=== PATIENT | female | born 1970 | race Caucasian/White ===

== ENCOUNTER 2016-07-21 15:08 | Emergency (ER) | payer MEDICAID, OTHER ==
[2016-07-21 15:32] VITALS: BP 126/87
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
== END 2016-07-21 16:17 | disposition home or self-care (01) ==
LOC: UCEAST 15:08 → MERGE 15:08 → UCEAST 16:17
DX: S90.862A Insect bite (nonvenomous), left foot, initial encounter (principal); L03.116 Cellulitis of left lower limb; W57.XXXA Bitten or stung by nonvenomous insect and other nonvenomous arthropods, initial encounter; Y93.9 Activity, unspecified; Y92.9 Unspecified place or not applicable; G43.909 Migraine, unspecified, not intractable, without status migrainosus; F41.8 Other specified anxiety disorders; Z88.5 Allergy status to narcotic agent
CPT/HCPCS: 99202; G0463

== ENCOUNTER 2016-09-23 09:57 | Emergency (ER) | payer OTHER ==
[2016-09-23 11:05] VITALS: BP 122/98
[2016-09-23] MEDS ORDERED: Acetaminophen TAB* 325 MG PO ONE (12:13)
[2016-09-23] MEDS ORDERED: Penicillin VK TAB* 250 MG PO ONE (12:17)
--- NOTE | 2016-09-23 12:26 | UC ---
Throat Pain/Nasal Drake HPI - HPI Summary HPI Summary: This is a 45 yo female with a 1d h/o ST, PHELPS and ear ache. Denies fever or sick contacts. Associated nausea, but no vomiting or diarrhea. No rash. No abd pain. No h/o similar symptoms. - History of Current Complaint Chief Complaint: UCGeneralIllness Stated Complaint: SORE THROAT Hx Last Menstrual Period: 09/04/16 - Allergies/Home Medications Allergies/Adverse Reactions: Allergies Allergy/AdvReac Type Severity Reaction Status Date / Time Codeine Allergy Nausea Verified 09/23/16 11:05 PMH/Surg Hx/FS Hx/Imm Hx Previously Healthy: No Neurological History: Seizures - Surgical History Surgical History: Yes Surgery Procedure, Year, and Place: ANKLE SURGERY- A TEENAGER. TUBAL LIGATION- 5 YEARS AGO- [facility] – [place]. D/C DR. SAGASTUME 10/19 - Family History Known Family History: Positive: None Negative: Cardiac Disease, Respiratory Disease - Social History Alcohol Use: None Substance Use Type: None Smoking Status (MU): Never Smoked Tobacco Review of Systems Constitutional: Fatigue Skin: Negative Eyes: Negative ENT: Sore Throat, Ear Ache Respiratory: Negative Cardiovascular: Negative Gastrointestinal: Negative Genitourinary: Negative Motor: Negative Neurovascular: Negative Musculoskeletal: Negative Neurological: Negative Psychological: Negative All Other Systems Reviewed And Are Negative: Yes Physical Exam Triage Information Reviewed: Yes Appearance: Ill-Appearing Vital Signs: Initial Vital Signs Temp 98.2 F 09/23/16 10:59 Pulse 100 09/23/16 10:59 Resp 18 09/23/16 10:59 BP 122/98 09/23/16 10:59 Pulse Ox 100 09/23/16 10:59 Vital Signs Reviewed: Yes ENT: Positive: Pharyngeal erythema, TM dull, Tonsillar swelling Neck: Positive: Supple, No Lymphadenopathy Respiratory: Positive: Lungs clear, Normal breath sounds. Negative: Crackles, Rhonchi, Wheezing Cardiovascular: Positive: RRR, No Murmur Abdomen Description: Positive: Nontender, Soft Skin Exam: Normal Skin: Negative: rashes Diagnostics - Laboratory Diagnostic Studies Completed/Ordered: rapid strep - positive Throat Pain/Nasal Course/Dx - Course Course Of Treatment: This is a 45 yo female with a sz d/o who presented with a 1 d [address] and PHELPS. Exam c/w strep pharyngitis, rapid strep positive. Pt reports she generally gets yeast infections along with abx use. Rx'd diflucan for prn use with PCN - Differential Dx/Diagnosis Differential Diagnosis/HQI/PQRI: Laryngitis, Pharyngitis, Sinusitis, Tonsillitis Provider Diagnoses: 1. Strep pharyngitis Discharge - Discharge Plan Condition: Stable Disposition: HOME Prescriptions: Fluconazole [Diflucan 150 MG (NF)] 150 mg PO ONCE #1 tab Penicillin VK 500 MG TAB(NF) [Penicillin VK 500 mg Tab] 500 mg PO TID #30 tab Patient Education Materials: Strep Throat (ED) Referrals: Amira Murray MD [Primary Care Provider] - If Needed Additional Instructions: Activity: As tolerated Instructions: 1. Please take antibiotics as directed 2. Use diflucan if you develop symptoms of a yeast infection 3. Use tylenol or ibuprofen for treatment of fevers/headache
== END 2016-09-23 12:30 | disposition home or self-care (01) ==
LOC: UCEAST 09:57
DX: J02.0 Streptococcal pharyngitis (principal)
CPT/HCPCS: 87651; 99212; A9270-GY; G0463

== ENCOUNTER 2017-02-16 18:18 | Emergency (ER) | payer OTHER ==
[2017-02-16 18:44] VITALS: BP 139/82
--- NOTE | 2017-02-16 18:59 | UC ---
Complaint Female HPI - HPI Summary HPI Summary: 46 y/o female presents to the urgent care c/o frequency and burning on urination sine yesterday. She took 2 tabs Pyridium last night, but they were . She also has mild abdominal cramping pain and with mild lower back. Pain is 2/10 with urination. LMP: 02/01/2017 with regular menstrual cycles. Pt denies fever, SOB, chest pain, vaginal discharge, Hx of STD's . - History Of Current Complaint Chief Complaint: UCGU Stated Complaint: FREQUENT AND BURNING UNRINATION Time Seen by Provider: 02/16/17 18:53 Hx Obtained From: Patient Hx Last Menstrual Period: 2 wks ago ?: No - B/L tubal ligation 5 years ago Onset/Duration: Gradual Onset, Lasting Days - 1 day, Still Present Timing: Intermittent, Lasting Seconds Severity Initially: Mild Severity Currently: Mild Pain Intensity: 2 Pain Scale Used: 0-10 Numeric Character: Burning Aggravating Factor(s): Urination Associated Signs And Symptoms: Positive: Negative. Negative: Fever, Back Pain, Vaginal Bleeding/Discharge, Vaginal Discharge, Genital Swelling - Risk Factors Ectopic Risk Factor: Negative Ovarian Torsion Risk Factor: Negative - Allergies/Home Medications Allergies/Adverse Reactions: Allergies Allergy/AdvReac Type Severity Reaction Status Date / Time Codeine Allergy Nausea Verified 02/16/17 18:44 PMH/Surg Hx/FS Hx/Imm Hx Previously Healthy: Yes Psychological History: Anxiety, Depression - Surgical History Surgical History: Yes Surgery Procedure, Year, and Place: ANKLE SURGERY- A TEENAGER. TUBAL LIGATION- 5 YEARS AGO- [facility] – [place]. D/C DR. SAGASTUME 10/19 - Family History Known Family History: Positive: Hypertension Negative: Cardiac Disease, Respiratory Disease - Social History Occupation: Employed Full-time Lives: With Family Alcohol Use: Rare Substance Use Type: Prescribed Smoking Status (MU): Never Smoked Tobacco Review of Systems Constitutional: Negative Skin: Negative Eyes: Negative ENT: Negative Respiratory: Negative Cardiovascular: Negative Genitourinary: Dysuria, Frequency, Urgency Motor: Negative Neurovascular: Negative Musculoskeletal: Negative Neurological: Negative Psychological: Negative Is Patient Immunocompromised?: No All Other Systems Reviewed And Are Negative: Yes Physical Exam Triage Information Reviewed: Yes Vital Signs: Initial Vital Signs Temp 99.0 F 02/16/17 18:41 Pulse 80 02/16/17 18:41 Resp 12 02/16/17 18:41 BP 139/82 02/16/17 18:41 Pulse Ox 100 02/16/17 18:41 - Additional Comments VITAL SIGNS: Reviewed. GENERAL: Patient is a well developed and nourished female who is sitting comfortable in the examining table. Patient is not in any acute respiratory distress. HEAD AND FACE: No signs of trauma. No ecchymosis, hematomas or skull depressions. No sinus tenderness. EYES: PERRLA, EOMI x 2, No injected conjunctiva, clear watery eyes, no nystagmus. No photophobia. EARS: Hearing grossly intact. Ear canals and tympanic membranes are within normal limits. MOUTH: pharynx with no erythema, no exudates,no palatal petechiae. no B/L tonsillar enlargement Uvula in midline. NECK: Supple, trachea is midline, no lymphadenopathy, no JVD, no carotid bruit, no c-spine tenderness, neck with full ROM. CHEST: Symmetric, no tenderness at palpation LUNGS: Clear to auscultation bilaterally. No wheezing or crackles. CVS: Regular rate and rhythm, S1 and S2 present, no murmurs or gallops appreciated. ABDOMEN: Soft, non-tender. No signs of distention. No rebound no guarding, and no masses palpated. Bowel sounds are normal. BACK:no scoliosis or lesions, non tender to palpation, No B/L CVA tenderness EXTREMITIES: FROM in all major joints, no edema, no cyanosis or clubbing. NEURO: Alert and oriented x 3. No acute neurological deficits. SKIN: Dry and warm Complaint Female Dx - Course Course Of Treatment: 46 y/o female presents to the urgent care c/o frequency and burning on urination sine yesterday. She took 2 tabs Pyridium last night, but they were . She also has mild abdominal cramping pain and with mild lower back. Pain is 2/10 with urination. LMP: 02/01/2017 with regular menstrual cycles. Pt denies fever, SOB, chest pain, vaginal discharge, Hx of STD's. Hx obtained. PE WNL. UA results: negative. However since Pt took Pyridium yesterday, Urine will be sent fot cultute r/o UTI. Pt will be notified for further treatment Pt Rx Pyridium 100mg PO TID x 2 days. Advised to increase fluid intake.. Pt advised If symptoms do not improve to return to the urgent care or f/u with PCP. Pt understood and agreed. Left the clinic ambulating. - Differential Dx/Diagnosis Differential Diagnosis/HQI/PQRI: Cervicitis, Pelvic Inflammatory Disease, Renal Colic, Ureteral Stone, Urinary Tract Infection Provider Diagnoses: 1- Dysuria r/o UTI Discharge - Discharge Plan Condition: Stable Disposition: HOME Prescriptions: Phenazopyridine TAB* [Pyridium 100 mg TAB*] 100 mg PO TID #6 tab Patient Education Materials: Dysuria (ED) Referrals: Yamil Stewart DO [Primary Care Provider] - 2 Days Additional Instructions: 1- Please take Pyridium 100 mg PO TID x 2 days to alleviate urinary symptoms. Increase increase fluid intake. drink cranberry juice. 2-Urine sent for culture if any abnormality, you will be notified for further treatment. 3-If symptoms do not improve please return to the urgent care or f/u with her PCP.
== END 2017-02-16 19:45 | disposition home or self-care (01) ==
LOC: UCEAST 18:18
DX: R30.0 Dysuria (principal); Z88.5 Allergy status to narcotic agent; F41.9 Anxiety disorder, unspecified; F32.9 Major depressive disorder, single episode, unspecified
CPT/HCPCS: 81003; 87086; 99212; G0463

== ENCOUNTER 2017-03-29 13:45 | Emergency (ER) | payer OTHER ==
[2017-03-29] MEDS ORDERED: Rabies VIRUS VACCINE (Imovax)* 2.5 UNIT/ML 1 ML IM ONE (14:51)
[2017-03-29] MEDS ORDERED: Rabies Immune Globulin 10 ML* 150 UNIT/ML VIAL IM ONE (15:30)
[2017-03-29] MEDS ORDERED: Acetaminophen TAB* 325 MG PO ONE (16:05)
--- NOTE | 2017-03-29 16:26 | UC ---
Alin Sahu Thomas, scribed for Luis Veronica MD on 03/29/17 at 1446 . Bite Injury/Animal HPI - HPI Summary HPI Summary: The patient is a 46 year old female who was bitten by her cat about 15 days ago on her right second finger. There was some bleeding, and it healed after 3-4 days. The patient additionally complains of pain radiating up the left arm, described as a muscle pain" that began last night. The patient was referred to urgent care by [facility]. - History of Current Complaint Chief Complaint: UCBiteInjury Stated Complaint: RABIES EXPOSURE Time Seen by Provider: 03/29/17 14:36 Hx Obtained From: Patient Hx Last Menstrual Period: 2 wks ago Severity Currently: Mild Severity Initially: Mild Onset/Duration: Lasting Days - about 15 days ago Type of Bite: Pet - Cat Aggravating Factor(s): Nothing Alleviating Factor(s): Nothing Hx of Bite: Unprovoked Animal Available for Observation: No - Allergies/Home Medications Allergies/Adverse Reactions: Allergies Allergy/AdvReac Type Severity Reaction Status Date / Time Codeine Allergy Nausea Verified 02/16/17 18:44 PMH/Surg Hx/FS Hx/Imm Hx Previously Healthy: No - Anxiety, gallbladder disease, depression Psychological History: Anxiety, Depression - Surgical History Surgical History: Yes Surgery Procedure, Year, and Place: ANKLE SURGERY- A TEENAGER. T[place]- 5 [place]ARS A[place] [facility] [place] D/C DR. SAGASTUME 10/19 - Family History Known Family History: Positive: Hypertension Negative: Cardiac Disease, Respiratory Disease - Social History Alcohol Use: Rare Substance Use Type: None, Prescribed Smoking Status (MU): Never Smoked Tobacco Review of Systems Skin: Other - Scar from cat bite Musculoskeletal: Other: - Left arm pain Is Patient Immunocompromised?: No All Other Systems Reviewed And Are Negative: Yes Physical Exam Triage Information Reviewed: Yes Vital Signs: Initial Vital Signs Temp 98.7 F 03/29/17 14:06 Pulse 71 03/29/17 14:06 Resp 18 03/29/17 14:06 BP 136/77 03/29/17 14:06 Pulse Ox 100 03/29/17 14:06 Vital Signs Reviewed: Yes - Additional Comments General: well-appearing, no pain distress Skin: warm, color reflects adequate perfusion, dry. 2 mm scar Head: normal Eyes: EOMI, ROSALINE ENT: normal Neck: supple, nontender Respiratory: CTA, breath sounds present Cardiovascular: RRR Abdomen: soft, nontender Bowel: present Musculoskeletal: Right second finger at fenar aspect of the PIP, strength/ROM intact Neurological: normal, sensory/motor intact, A&O x3 Psychological: affect/mood appropriate Bite Injury Course/Dx - Course Course Of Treatment: Medications Reviewed. Allergies Noted. BP noted and advised to follow up with PCP. DISCUSSED WITH [facility]. 1ML ABLE TO BE GIVEN IN RT INDEX FINGER. F/U [facility]; RETURN IF WORSE. - Differential Dx/Diagnosis Provider Diagnoses: RABIES PROPHYLAXIS. Elevated blood pressure without history of hypertension Discharge - Discharge Plan Condition: Stable Disposition: HOME Patient Education Materials: Rabies Vaccine (By injection), Rabies Immune Globulin (By injection), Rabies (ED) Referrals: Yamil Stewart DO [Primary Care Provider] - Additional Instructions: Your blood pressure was elevated during todays visit; please follow up with your primary care provider within a week for further evaluation. FOLLOW UP WITH [facility]. GO TO THE EMERGENCY DEPARTMENT FOR ANY WORSENING OF YOUR CONDITION OR QUESTIONS OR CONCERNS. The documentation as recorded by the Alin cantor Thomas accurately reflects the service I personally performed and the decisions made by me, Luis Veronica MD.
[2017-03-29 16:36] VITALS: BP 130/90
== END 2017-03-29 16:30 | disposition home or self-care (01) ==
LOC: UCEAST 13:45
DX: M79.1 Myalgia (principal); Z20.3 Contact with and (suspected) exposure to rabies; Z23 Encounter for immunization; R03.0 Elevated blood-pressure reading, without diagnosis of hypertension; K82.9 Disease of gallbladder, unspecified; F41.9 Anxiety disorder, unspecified; F32.9 Major depressive disorder, single episode, unspecified; Z88.5 Allergy status to narcotic agent
CPT/HCPCS: 90375; 90471; 96372; 99212; A9270-GY; G0463

== ENCOUNTER 2017-05-29 16:49 | Emergency (ER) | payer SELFPAY ==
[2017-05-29 17:04] VITALS: BP 151/81
[2017-05-29] MEDS ORDERED: HYDROcodone/ACETAMIN 5-325 MG* 1 TAB PO ONE (17:36)
[2017-05-29] MEDS ORDERED: Cyclobenzaprine TAB* 10 MG PO ONE (17:36)
--- NOTE | 2017-05-29 20:32 | UC ---
Jonatan Sahu Natalie, scribed for Luis Veronica MD on 05/29/17 at 1722 . Back Pain HPI - HPI Summary HPI Summary: The pt is a 46 y/o F presenting to [facility] c/o back ache starting a few weeks ago, worsening yesterday. After starting a new job, she has started to have back pain. Yesterday at work, she was lifting a box at work when the pain worsened. The pain is on the lower left side of her back and does not radiate to her buttock or leg. The pain is rated 8/10. She has taken Inna, Advil, and B[employer]IST to little relief. She sits with her knees to her chest to relieve some of the pain. The pain is aggravated by movement and bending. She has not had any previous injury to her back. She is allergic to codeine. - History of Current Complaint Chief Complaint: UCBackPain Stated Complaint: BACK INJURY Time Seen by Provider: 05/29/17 17:08 Hx Obtained From: Patient Hx Last Menstrual Period: 05/09/2017 Onset/Duration: Sudden Onset, Lasting Weeks - starting a few weeks ago, Still Present, Worse Since - yesterday Timing: Constant Severity Initially: Moderate Severity Currently: Moderate Pain Intensity: 8 Pain Scale Used: 0-10 Numeric Character: Aching Aggravating Factor(s): Movement, Bending Alleviating Factor(s): Other - sitting with knees to chest - Allergies/Home Medications Allergies/Adverse Reactions: Allergies Allergy/AdvReac Type Severity Reaction Status Date / Time codeine Allergy GI Upset Verified 05/29/17 17:05 PMH/Surg Hx/FS Hx/Imm Hx - Surgical History Surgical History: Yes Surgery Procedure, Year, and Place: ANKLE SURGERY- A TEENAGER. TUBAL LIGATION- 5 YEARS AGO- [facility] [place] D/C DR. SAGASTUME 10/19 - Family History Known Family History: Positive: Hypertension Negative: Cardiac Disease, Respiratory Disease - Social History Alcohol Use: Rare Substance Use Type: None, Prescribed Smoking Status (MU): Never Smoked Tobacco Review of Systems Constitutional: Other - NEGATIVE: fever Musculoskeletal: Other: - lower back pain All Other Systems Reviewed And Are Negative: Yes Physical Exam Triage Information Reviewed: Yes Appearance: Well-Appearing, No Pain Distress Vital Signs: Initial Vital Signs Temp 99.2 F 03/25/18 16:58 Pulse 99 05/29/17 16:58 Resp 16 05/29/17 16:58 BP 151/81 05/29/17 16:58 Pulse Ox 100 05/29/17 16:58 Vital Signs Reviewed: Yes Eyes: Positive: Other: - EOMI, ROSALINE ENT: Positive: Normal ENT inspection Neck: Positive: Supple, Nontender Respiratory: Positive: Other: - CTA, breath sounds present Cardiovascular: Positive: RRR Abdomen Description: Positive: Nontender, Soft Bowel Sounds: Positive: Present Musculoskeletal: Positive: Strength Intact, ROM Intact, Other: - sensitive to palpright in lower lumbar and right SI joint Neurological: Positive: Other: - normal, sensory/motor intact, A&O x3 Psychological: Positive: Other: - affect/mood appropriate Skin: Positive: Other - warm, color reflects adequate perfusion, dry Back Pain Course/Dx - Course Course Of Treatment: Medications reviewed. Allergies noted. BP noted and pt advised to follow up with PCP. NO NEUROLOGIC SX. - Differential Dx/Diagnosis Provider Diagnoses: LOW BACK PAIN WITHOUT RADICULOPATHY Discharge - Sign-Out/Discharge Documenting (check all that apply): Discharge - Discharge Plan Condition: Stable Disposition: HOME Discharge Disposition Comment: The pt will be discharged home. Prescriptions: Cyclobenzaprine TAB* [Flexeril 10 MG TAB*] 10 mg PO TID PRN #15 tab MDD 3 PRN Reason: Pain HYDROcodone/ACETAMIN 5-325 MG* [[place] 5-325 TAB*] 1 tab PO Q4H PRN #30 tab MDD 6 PRN Reason: Pain Ibuprofen 600 mg PO Q6H PRN #30 tablet PRN Reason: Pain Patient Education Materials: Acute Low Back Pain (ED), Lower Back Exercises (ED ), Exercise Safety (ED), Core Strengthening Exercises (ED) Forms: *Work Release Referrals: Yamil Stewart DO [Primary Care Provider] - Additional Instructions: FOLLOW UP WITH YOUR DOCTOR. GET RECHECKED FOR ANY WORSENING OF YOUR CONDITION OR QUESTIONS OR CONCERNS. YOUR BLOOD PRESSURE WAS ELEVATED TODAY; FOLLOW UP WITH YOUR PRIMARY CARE DOCTOR WITHIN ONE WEEK. - Billing Disposition and Condition Condition: STABLE Disposition: HOME The documentation as recorded by the Jonatan cantor Natalie accurately reflects the service I personally performed and the decisions made by me, Luis Veronica MD.
== END 2017-05-29 18:00 | disposition home or self-care (01) ==
LOC: UCEAST 16:49
DX: M54.5 Low back pain (principal); Z88.5 Allergy status to narcotic agent
CPT/HCPCS: 99212; A9270-GY; G0463

== ENCOUNTER 2018-07-08 16:56 | Emergency (ER) | payer OTHER ==
--- OUTSIDE RECORDS SUMMARY | 2018-07-08 17:02 | XMS REPORT | Continuity of Care Document ---
:1970 External Reference #:[id number] Author Name Yamil Stewart D.O. Address [address] [place] [id number] Care Team Providers Name Role Phone HCP given Primary Care Physician Unavailable Payers Date Identification Numbers Payment Provider Subscriber Effective: Policy Number: [id number] [employer] (JASON Matute 2015 [facility]) PayID: [id number] [place] [id number] Advance Directives Description No Information Available Problems Active Problems Provider Date Generalized anxiety disorder Yamil Stewart D.O. Onset: 02/22/2013 Essential hypertension Yamil Stewart D.O. Onset: 03/26/2013 History and physical examination, Yamil Stewart D.O. Onset: 03/26/2013 administrative Recurrent major depressive episodes Yamil Stewart D.O. Onset: 04/23/2013 Migraine with typical aura Yamil Stewart D.O. Onset: 03/25/2015 Neck pain Yamil Stewart D.O. Onset: 03/25/2015 Motion sickness, subsequent encounter Yamil Stewart D.O. Onset: 08/26/2015 Insomnia Yamil Stewart D.O. 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 Student College Work Status Currently Working Work Status Negative For Laid Off Abuse No history of abuse Tobacco Use Start: Unknown Denies Cigarette Use ETOH Use Denies alcohol use Recreational Drug Use Denies Drug Use Tobacco Use Start: Unknown Patient has never smoked Smoking Status Reviewed: 07/03/18 Patient has never smoked Exercise Type/Frequency Exercises rarely Sun Exposure Uses sunscreen Seat Belt/Car Seat Seat Belt Use - Yes Currently Active Patient is currently sexually active Contraceptive Methods Tubal Ligation Age 1st [place] 16 Years Old Allergies, Adverse Reactions, Alerts Active Allergies Reaction Severity Comments Date Codeine Itching 02/22/2013 Medications Active Medications SIG Qnty Indications Ordering Date Provider Amitriptyline HCL 1-2 by mouth 180tabs F33.9 Yamil Stewart, 12/26/2017 10mg every night at D.O. Tablets bedtime G47.00 Levetiracetam take 1 tablet once 90tabs G43.109 Yamil Stewart, 12/25/2017 250mg Tablets daily in addition D.O. to 500mg at night F41.1 F33.9 Oxybutynin Chloride ER take 1 tablet by Unknown 12/25/2017 mouth daily 15mg Tablets ER 24HR Alprazolam take 1 to 2 tablets 90tabs F41.1 Yamil Stewart, 06/27/2017 0.25mg Tablets by mouth three D.O. times a day . Max Of 4 Tabs/Day Keppra 1 by mouth daily 90tabs G43.109 Yamil Stewart, 05/27/2016 500mg Tablets D.O. F41.1 F33.9 Magnesium Oxide Take 5 To 8 Tabs 240tabs G43.109 Yamil Stewart, 2015 Daily as Directed D.O. 400(240mg) mg Tablets Imitrex 1 spray intranasally 12units G43.109 Yamil Stewart, 03/23/2013 20mg/Act at onset of migraine; D.O. Solution may repeat after 2 hours if you have had a part response max 3 spry/d 7 spry/wk Butalbital/Acetamino take 2 tablets by 14tabs Yamil Stewart, phen/Caffeine mouth every 4 hours D.O. 50-325-40mg Tablets Vitamin D3 Maximum 1 by mouth every day 90caps Unknown Strength 5000Unit Capsules History Medications Keppra 1 by mouth every G43.109 TerryYamil, 12/26/2017 - 500mg day D.O. 12/26/2017 Tablets F41.1 F33.9 [facility]am [facility] - 250mg Tablets addition to 500mg Yamil D.O. 12/26/2017 at night. Imitrex take 1 tablet by 14ta Terry, 06/16/2017 - 50mg Tablets mouth 2 times per Yamil D.O. 07/16/2017 day at least 2 hours between dosesas needed for migraine headache Ondansetron 1-2 by mouth three 10tabs Terry, 06/16/2017 - 4mg Tablets times a day as Yamil D.OAvel 06/30/2017 Dispers needed for nausea Xanax 1-2 tab by mouth 3 90tabs F41.1 Thelmacodaniella, 05/26/2017 - 0.25mg Tablets x a day code b mdd Ceasar Sainz 06/27/2017 4 mdd 4 MDD 4 MDD 4 Omeprazole 1 by mouth daily in [facility], 01/31/2017 - 40mg Capsules DR the Am as needed Delores LoboOAvel 12/25/2017 Penicillin V Potassium 1 tab tid x 10 days 30tabs J02.0 Alin, 2016 - 500mg for recurring strep Ceasar Sainz 11/13/2016 Tablets Fluconazole take on by mouth 3tabs N76.0 Terry, 10/14/2016 - 150mg Tablets per week x 3 weeks Mariya Lobo.OAvel 11/04/2016 Cefdinir 1 twice a day x 10 20caps J02.9 [facility]14[facility]2016 - 300mg Capsules days Mariya Lobo.OAvel 10/24/2016 Methylprednisolone 6 tabs on day 1; 21tabs Terry, 12/11/2015 - 4mg then 5 tabs day2; Yamil D.O. 12/17/2015 Tablets then 4 tabs ay3; then 3 tabs day4; then 2 tabs day 5; then 1 tab day 6 Hydroxyzine HCL 1 by mouth three 90tabs G47.00 Terry, 11/25/2015 - 25mg Tablets times a day as Yamil D.O. 05/26/2016 needed for anxiety/sleep Meclizine HCL take 1 tablet by 45tabs T75.3x Terry, 08/26/2015 - 25mg Tablets mouth 3 times per xA Mariya Lobo.O. 12/25/2017 day as needed for sensation of motion Scopolamine Transdermal 1 ptch every 3 days 15units T75.3x Terry, 2015 - Patch as needed for xA Mariya Lobo.O. 08/26/2015 1.5mg Patch motion sickness Ciprofloxacin HCL 1 tab twice a day x 28tabs R19.7 Terry, 07/31/2015 - 500mg 7 if needed for Mariya Lobo.OAvel 09/29/2015 Tablets traveler's diarrhea Lamotrigine 1 by mouth daily 14tabs F33.9 Terry, 06/10/2015 - 25mg Tablets for 1-2 week then Yamil D.OAvel 06/24/2015 stop. Keppra 1 by mouth a day 90tabs G43.10 Terry, 06/10/2015 - 250mg Tablets for mood 9 Mariya Lobo.O. 12/25/2017 stabilization F41.1 F33.9 Ciprofloxacin HCL 1 tab twice a 10tabs R30.0 Yamil Stewart, 06/05/2015 - 500mg day x 5 D.O. 06/10/2015 Tablets Lamotrigine ER Take 1 tablet 90tabs F33.9 Yamil Stewart, 04/08/2015 - 50mg by mouth daily D.O. 06/10/2015 Tablets ER 24HR Lamotrigine 1 by mouth 180tabs F33.9 Yamil Stewart, 03/25/2015 - 25mg twice a day. D.O. 04/08/2015 Tablets Buspirone HCL take one tablet 60tabs 296.30 Yamil Stewart, 10/24/2014 - 5mg by mouth twice D.O. 03/13/2015 Tablets a day as needed for anxiety Benzonatate 1 by mouth 90caps 786.2 Yamil Stewart, 02/23/2014 - 200mg three times a D.O. 03/13/2015 Capsules day as needed cough Proair HFA 1-2 puffs four 8.5units 786.2 Terry Yamil, 02/23/2014 - 108(90Base) times a day as D.O. 03/25/2015 mcg/Act Aerosol needed Azithromycin take 2 tablets 6tabs 786.2 Yamil Stewart, 02/23/2014 - 250mg by mouth one D.O. 03/08/2014 Tablets time on the first day then take 1 tablet by mouth daily for 4 days Prozac 1 by mouth 90caps 296.30 Yamil Stewart, 12/31/2013 - 20mg Capsules every day D.O. 10/24/2014 Prozac 1 by mouth 300.02 Luis Pimentel 12/22/2013 - 40mg Capsules every day Ceasar Daley 12/25/2013 296.30 Restoril 1 at bedtime for 5caps 296.30 Luis Pimentel 12/22/2013 - 30mg sleep Ceasar Daley 12/24/2013 Capsules Trazodone HCL take 1 tablet by 90tabs F33.9 Yamil Stewart, 12/22/2013 - 100mg mouth every D.O. 12/26/2017 Tablets night at bedtime G47.00 Prozac 1 by mouth every day 90caps 300.02 Terry, 06/30/2013 - 10mg Mariya Lobo.O. 12/22/2013 Capsules Lexapro 1 po qd 90tabs 300.02 Terry, 04/23/2013 - 5mg Tablets Yamil D.O. 06/30/2013 Escitalopram take 1 tablet by 60tabs Unknown 04/23/2013 - Oxalate mouth once daily 08/08/2013 5mg Tablets Propranolol HCL ER 1 by mouth every day 30caps 401.9 Terry, 03/29/2013 - for blood pressure Mariya Lobo.OAvel 03/29/2013 60mg Caps ER 24HR Propranolol HCL ER take 1 capsule by 90caps 401.9 Terry, 03/26/2013 - mouth daily for high Delores LoboOAvel 10/24/2014 80mg Caps ER 24HR blood pressure Alprazolam 1-2 tab by mouth 3 x 90tabs F41.1 Thelmacoff, 03/23/2013 - 0.25mg a day code a, mdd 4 Ceasar Sainz 05/26/2017 Tablets Alprazolam 1 po tid 90tabs 300.02 Terry, 02/21/2013 - 0.25mg Delores LoboOAvel 03/26/2013 Tablets Butalbital/Acetamin Unknown 02/21/2013 - ophen/Caffeine 03/26/2013 50-325-40mg Tablets Sumatriptan Inhale 1 spray into 1units Terry, 02/21/2013 - nostril daily 4 times Santiago Lobo 03/26/2013 20mg/Act Solution per 30 days in 1 nostril may repeat dose after 2 hours as needed for migraine heada Zolpidem Tartrate Take 1 Tablet AT Unknown - Bedtime as Needed For 03/26/2013 10mg Tablets Insomnia. Max Daily Dose Is 1 T Fluvirin PF inject 0.5 milliliter Unknown - [id number] intramuscularly 03/26/2013 PF 12-13 Suspension Fluvirin PF Vanevery, - [id number] MD Janel 03/26/2013 PF 12-13 Suspension Omeprazole Unknown - 20mg 03/26/2013 Capsules Omeprazole Unknown - 20mg 03/26/[address] Polyethylene Glycol Unknown - 3350 03/26/2013 [id number] Powder Cassie-28 Unknown - 03/26/2013 0.15-30mg-mcg Tablets Trazodone HCL Unknown - 100mg 03/26/2013 Tablets Amphetamine/Dextroa Unknown - mphetamine 03/26/2013 10mg Tablets Abilify Unknown - 5mg Tablets 03/26/2013 Zolpidem Tartrate Unknown - 03/26/2013 10mg Tablets Seroquel XR Unknown - 200mg 03/26/2013 Tablets ER 24HR Mirtazapine Unknown - 30mg 03/26/2013 Tablets Clonazepam Unknown - 0.5mg 03/26/2013 Tablets Amphetamine/Dextroa Unknown - mphetamine 03/26/2013 30mg Caps ER 24HR Probiotic 1 by mouth every day 30caps Unknown - Acidophilus 03/13/2015 Capsules Levetiracetam 1 by mouth every day G43.109 Sopchak, - 500mg Yamil D.OAvel 12/25/2017 F41.1 F33.9 Ciprofloxacin HCL Unknown - 500mg Tablets 03/26/2013 Ciprofloxacin HCL take 1 tablet by mouth Unknown - 500mg Tablets every 12 hours 03/26/2013 Phenazopyridine HCL Take 1 Tablet By Mouth 3 Unknown - 100mg Tablets Times Daily as Needed 03/26/2013 For Bladder Problems Phenazopyridine HCL Unknown - 100mg Tablets 03/26/2013 Mometasone Furoate apply to affected area Unknown - 0.1% Cream once daily 03/26/2013 Mometasone Furoate Unknown - 0.1% Cream 03/26/2013 Butalbital/Acetaminophen/Ca Unknown - ffeine 03/26/2013 50-325-40mg Tablets Amoxicillin/Clavulanate Unknown - Potassium 03/26/2013 875-125mg Tablets Amphetamine/Dextroamphetami Unknown - ne 20mg 03/26/2013 Caps ER 24HR Amphetamine/Dextroamphetami Take 1 Capsule Every Unknown - ne 20mg Morning Or as Directed. 03/26/2013 Caps ER 24HR Cymbalta Unknown - 60mg Caps DR Cochran 03/26/2013 Cymbalta take 1 capsule by mouth Unknown - 60mg Caps DR Cochran once daily 03/26/2013 Fluticasone Propionate Unknown - 50mcg/Act 03/26/2013 Suspension Fluticasone Propionate Instill 2 Sprays Unknown - 50mcg/Act Intranasally Once Daily. 03/26/2013 Suspension Prednisone Take 4 Tabs Daily For 2 Unknown - 10mg Tablets Days, Then 3 Tabs Daily 03/26/2013 For 2 Days, Then ... Prednisone Unknown - 10mg Tablets 03/26/2013 Zolpidem Tartrate Unknown - 10mg Tablets 03/26/2013 Immunizations CPT Code Status Date Vaccine Lot # [id number] Given 10/29/2016 Influenza Virus Vaccine, Quadrivalent, Split, [id number] Preservative Free 07651 Given 10/14/2016 MMR Virus Immunization [id number] Given 08/26/2015 Adacel or Boostrix, TDaP [id number] 48726 Given 03/12/2014 flu mist - live influenza virus vaccine for [id number] intranasal use 57964 Given 10/03/2007 Td Immunization 33236 Given 10/03/2007 Hep A, Adult 09495 Given 04/15/2007 Hep A, Adult Vital Signs Date Vital Result Comment 07/03/2018 2:38pm BP Systolic 130 mmHg BP Diastolic 84 mmHg Height 66.75 inches 5'6.75" Weight 181.00 lb BMI (Body Mass Index) 28.6 kg/m2 03/28/2018 2:39pm BP Systolic 124 mmHg BP Diastolic 84 mmHg Weight 185.00 lb 12/26/2017 3:16pm BP Systolic 122 mmHg BP Diastolic 80 mmHg Height 66.75 inches 5'6.75" Weight 183.00 lb BMI (Body Mass Index) 28.9 kg/m2 07/04/2017 5:03pm BP Systolic 125 mmHg BP Diastolic 85 mmHg 03/21/2017 3:36pm BP Systolic 133 mmHg BP Diastolic 80 mmHg Heart Rate 60 /min Height 66.5 inches 5'6.50" Weight 172.00 lb BMI (Body Mass Index) 27.3 kg/m2 02/04/2017 9:00am BP Systolic 136 mmHg BP Diastolic 90 mmHg BP Systolic Recheck 132 mmHg BP Diastolic Recheck 90 mmHg Height 67 inches 5'7" Weight 167.00 lb BMI (Body Mass Index) 26.2 kg/m2 11/04/2016 2:01pm BP Systolic 106 mmHg BP Diastolic 68 mmHg Body Temperature 97.8 F 10/29/2016 9:19am BP Systolic 120 mmHg BP Diastolic 80 mmHg Body Temperature 97.8 F Weight 164.00 lb 10/14/2016 11:04am BP Systolic 100 mmHg BP Diastolic 70 mmHg Body Temperature 97.9 F 08/31/2016 8:34am BP Systolic 108 mmHg BP Diastolic 70 mmHg Weight 177.00 lb 05/27/2016 8:53am BP Systolic 122 mmHg BP Diastolic 78 mmHg Height 67.5 inches 5'7.50" with shoes Weight 175.00 lb with shoes BMI (Body Mass Index) 27.0 kg/m2 02/24/2016 8:50am BP Systolic 124 mmHg BP Diastolic 78 mmHg Body Temperature 98.0 F Weight 179.00 lb 11/25/2015 8:50am BP Systolic 122 mmHg BP Diastolic 80 mmHg Height 67 inches 5'7" Weight 179.00 lb BMI (Body Mass Index) 28.0 kg/m2 08/26/2015 8:59am BP Systolic 130 mmHg BP Diastolic 88 mmHg Heart Rate 65 /min Weight 183.00 lb 07/31/2015 8:49am BP Systolic 126 mmHg BP Diastolic 82 mmHg Weight 183.00 lb 06/27/2015 9:13am BP Systolic 130 mmHg BP Diastolic 82 mmHg Heart Rate 76 /min reg Respiratory Rate 16 /min not laboured Body Temperature 98.3 F Weight 180.00 lb 06/24/2015 9:01am BP Systolic 134 mmHg BP Diastolic 82 mmHg Heart Rate 73 /min 06/10/2015 9:27am BP Systolic 130 mmHg BP Diastolic 84 mmHg Weight 181.00 lb 06/05/2015 1:21pm BP Systolic 132 mmHg BP Diastolic 88 mmHg Weight 181.00 lb 04/29/2015 9:02am BP Systolic 138 mmHg BP Diastolic 88 mmHg Weight 181.50 lb 04/08/2015 8:53am BP Systolic 137 mmHg BP Diastolic 89 mmHg Heart Rate 84 /min Weight 180.00 lb 03/25/2015 9:02am BP Systolic 151 mmHg BP Diastolic 98 mmHg Heart Rate 76 /min Weight 182.00 lb 03/13/2015 9:57am BP Systolic 120 mmHg BP Diastolic 80 mmHg Height 67 inches 5'7" Weight 178.00 lb BMI (Body Mass Index) 27.9 kg/m2 10/24/2014 11:18am BP Systolic 122 mmHg BP Diastolic 80 mmHg Height 67 inches 5'7" Weight 185.00 lb BMI (Body Mass Index) 29.0 kg/m2 03/12/2014 9:09am BP Systolic 140 mmHg BP Diastolic 88 mmHg Heart Rate 53 /min Height 67 inches 5'7" Weight 182.00 lb BMI (Body Mass Index) 28.5 kg/m2 02/23/2014 10:53am BP Systolic 126 mmHg BP Diastolic 86 mmHg Body Temperature 98.2 F Weight 180.00 lb 12/31/2013 1:32pm BP Systolic 120 mmHg BP Diastolic 82 mmHg Weight 172.00 lb 12/22/2013 11:20am BP Systolic 100 mmHg please recheck BP Diastolic 80 mmHg please recheck Weight 170.00 lb 11/12/2013 3:00pm BP Systolic 125 mmHg BP Diastolic 85 mmHg 08/16/2013 1:00pm Weight 174.00 lb 06/30/2013 9:13am BP Systolic 144 mmHg BP Diastolic 92 mmHg BP Systolic Recheck 144 mmHg BP Diastolic Recheck 85 mmHg Weight 175.00 lb 04/23/2013 12:16pm BP Systolic 130 mmHg BP Diastolic 80 mmHg Weight 171.00 lb 03/26/2013 3:07pm BP Systolic 164 mmHg BP Diastolic 100 mmHg BP Systolic Recheck 145 mmHg BP Diastolic Recheck 104 mmHg Height 66.5 inches 5'6.50" Weight 168.00 lb BMI (Body Mass Index) 26.7 kg/m2 02/22/2013 12:53pm BP Systolic 146 mmHg BP Diastolic 98 mmHg Results Test Date Facility Test Result H/L Range Note Ua Inhouse 03/21/2017 In House Ua Glucose - 1 Ua Bilirubin - Ua Ketones - Ua Specific Edwards 1.015 Ua Blood lg Ua PH 6.0 Ua Protein - Ua Urobilinogen - Ua Nitrite - Ua Leukocytes - Laboratory 02/16/2017 [facility] Urine Culture And SEE RESULT 2, 3 test finding [phone] Sensitivities BELOW Poc Urinalysis 02/16/2017 [facility] Poc Glucose, Negative Negative [phone] Urine Poc Bilirubin, Urine Negative Negative Poc Ketone, Urine Negative Negative Poc Specific Edwards, Urine 1.020 N 1.010-1.030 Poc Blood, Urine Negative Negative Poc pH, Urine 6.5 N 5-9 Poc Protein, Urine Negative Negative Poc Urobilinogen, Urine 0.2 Negative Poc Nitrite, Urine Negative Negative Poc Leukocytes, Urine Negative Negative Poc Color, Urine Yellow Poc Clarity, Urine Clear 4 Laboratory test 11/04/2016 [facility] Culture Throat SEE RESULT BELOW 5 finding [phone] Laboratory test 11/04/2016 In House Culture Throat negative finding Rapid Screen Laboratory test 10/29/2016 In House Culture Throat negative finding Rapid Screen Culture Throat positive Laboratory test 10/14/2016 In House Culture Throat positive finding Rapid Screen Comp Metabolic Panel 05/27/2016 [facility] Sodium 138 mmol/L N 133- 145 [phone] Potassium 4.3 mmol/L N 3.5-5.0 Chloride 101 mmol/L N 101-111 Co2 Carbon Dioxide 28 mmol/L N 22-32 Anion Gap 9 mmol/L N 2-11 Glucose 90 mg/dL N 70-100 Blood Urea Nitrogen 14 mg/dL N 6-24 Creatinine 0.83 mg/dL N 0.51-0.95 BUN/Creatinine Ratio 16.9 N 8-20 Calcium 9.9 mg/dL N 8.6-10.3 Total Protein 7.0 g/dL N 6.4-8.9 Albumin 4.5 g/dL N 3.2-5.2 Globulin 2.5 g/dL N 2-4 Albumin/Globulin Ratio 1.8 N 1-3 Total Bilirubin 0.60 mg/dL N 0.2-1.0 Alkaline Phosphatase 120 U/L High 34-104 Alt 21 U/L N 7-52 Ast 19 U/L N 13-39 Egfr Non- 73.7 N >60 Egfr 94.8 N >60 6 Laboratory test finding 05/27/2016 [facility] Magnesium 2.4 mg/dL N 1.9-2.7 [phone] Vitamin D Total 25(Oh) 24.1 ng/mL Low 30-50 TSH (Thyroid Stim Horm) 2.42 mcIU/mL N 0.34-5.60 CBC Auto Diff 05/27/2016 [facility] White Blood Count 7.5 10^3/uL N 3.5-10.8 [phone] Red Blood Count 5.09 10^6/uL N 4.0-5.4 Hemoglobin 14.7 g/dL N 12.0-16.0 Hematocrit 43 % N 35-47 Mean Corpuscular Volume 84 fL N 80-97 Mean Corpuscular Hemoglobin 29 pg N 27-31 Mean Corpuscular HGB Conc 35 g/dL N 31-36 Red Cell Distribution Width 13 % N 10.5-15 Platelet Count 232 10^3/uL N 150-450 Mean Platelet Volume 11 um3 High 7.4-10.4 Abs Neutrophils 5.0 10^3/uL N 1.5-7.7 Abs Lymphocytes 1.9 10^3/uL N 1.0-4.8 Abs Monocytes 0.6 10^3/uL N 0-0.8 Abs Eosinophils 0.1 10^3/uL N 0-0.6 Abs Basophils 0.1 10^3/uL N 0-0.2 Abs Nucleated RBC 0 10^3/uL N Granulocyte % 65.9 % N 38-83 Lymphocyte % 24.6 % Low 25-47 Monocyte % 7.8 % N 1-9 Eosinophil % 0.7 % N 0-6 Basophil % 1.0 % N 0-2 Nucleated Red Blood Cells % 0.1 N CBC Auto Diff 06/27/2015 [facility] White Blood Count 8.4 10^3/uL N 3.5-10.8 [phone] Red Blood Count 4.95 10^6/uL N 4.0-5.4 Hemoglobin 14.6 g/dL N 12.0-16.0 Hematocrit 42 % N 35-47 Mean Corpuscular Volume 85 fL N 80-97 Mean Corpuscular Hemoglobin 29 pg N 27-31 Mean Corpuscular HGB Conc 35 g/dL N 31-36 Red Cell Distribution Width 13 % N 10.5-15 Platelet Count 234 10^3/uL N 150-450 Mean Platelet Volume 11 um3 High 7.4-10.4 Abs Neutrophils 5.3 10^3/uL N 1.5-7.7 Abs Lymphocytes 2.0 10^3/uL N 1.0-4.8 Abs Monocytes 0.7 10^3/uL N 0-0.8 Abs Eosinophils 0.2 10^3/uL N 0-0.6 Abs Basophils 0.1 10^3/uL N 0-0.2 Abs Nucleated RBC 0.01 10^3/uL N Granulocyte % 63.3 % N 38-83 Lymphocyte % 23.9 % Low 25-47 Monocyte % 8.8 % N 1-9 Eosinophil % 2.9 % N 0-6 Basophil % 1.1 % N 0-2 Nucleated Red Blood Cells % 0.1 N Comp Metabolic Panel 06/27/2015 [facility] Sodium 135 mmol/L N 133- 145 [phone] Potassium 4.0 mmol/L N 3.5-5.0 Chloride 103 mmol/L N 101-111 Co2 Carbon Dioxide 26 mmol/L N 22-32 Anion Gap 6 mmol/L N 2-11 Glucose 87 mg/dL N 70-100 Blood Urea Nitrogen 13 mg/dL N 6-24 Creatinine 0.82 mg/dL N 0.51-0.95 BUN/Creatinine Ratio 15.9 N 8-20 Calcium 9.1 mg/dL N 8.6-10.3 Total Protein 6.5 g/dL N 6.4-8.9 Albumin 4.3 g/dL N 3.2-5.2 Globulin 2.2 g/dL N 2-4 Albumin/Globulin Ratio 2.0 N 1-3 Total Bilirubin 0.50 mg/dL N 0.2-1.0 Alkaline Phosphatase 113 U/L High 34-104 Alt 16 U/L N 7-52 Ast 14 U/L N 13-39 Egfr Non- 75.1 N >60 Egfr 96.5 N >60 7 Urine Micro Inhouse 06/27/2015 In House Ua WBC 0-3 Ua RBC 0-2 Ua Casts - Ua Epi - Ua Other - Ua Glucose - Ua Bilirubin sm Ua Ketones - Ua Specific Edwards 1.020 Ua Blood nh tr Ua PH 6.0 Ua Protein - Ua Urobilinogen - Ua Nitrite - Ua Leukocytes - Laboratory test 06/10/2015 [facility] Urine Culture And SEE RESULT 8 finding [phone] Sensitivities BELOW Culture Urine 06/05/2015 In House Colonies negative 9 Inhouse Urine Micro 06/05/2015 In House Ua WBC - Inhouse Ua RBC - Ua Casts - Ua Epi many Ua Other - Ua Glucose - Ua Bilirubin - Ua Ketones - Ua Specific Edwards 1.020 Ua Blood - Ua PH 5.0 Ua Protein - Ua Urobilinogen - Ua Nitrite - Ua Leukocytes - Laboratory test 03/25/2015 [facility] TSH (Thyroid 1.59 ?IU/mL N 0.34 -5.60 finding [phone] Stim Horm) Vitamin B12 486 pg/mL N 180-914 10 Vitamin D Total 25(Oh) 18.7 ng/mL Low 30-50 Magnesium 2.1 mg/dL N 1.9-2.7 CBC Auto Diff 03/25/2015 [facility] White Blood Count 8.8 10^3/uL N 3.5-10.8 [phone] Red Blood Count 4.96 10^6/uL N 4.0-5.4 Hemoglobin 14.6 g/dL N 12.0-16.0 Hematocrit 43 % N 35-47 Mean Corpuscular Volume 86 fL N 80-97 Mean Corpuscular Hemoglobin 29 pg N 27-31 Mean Corpuscular HGB Conc 34 g/dL N 31-36 Red Cell Distribution Width 13 % N 10.5-15 Platelet Count 202 10^3/uL N 150-450 Mean Platelet Volume 10 um3 N 7.4-10.4 Abs Neutrophils 5.8 10^3/uL N 1.5-7.7 Abs Lymphocytes 2.2 10^3/uL N 1.0-4.8 Abs Monocytes 0.7 10^3/uL N 0-0.8 Abs Eosinophils 0.1 10^3/uL N 0-0.6 Abs Basophils 0 10^3/uL N 0-0.2 Abs Nucleated RBC 0 10^3/uL N Granulocyte % 65.9 % N 38-83 Lymphocyte % 24.4 % Low 25-47 Monocyte % 8.0 % N 1-9 Eosinophil % 1.2 % N 0-6 Basophil % 0.5 % N 0-2 Nucleated Red Blood Cells % 0 N Comp Metabolic Panel 03/25/2015 [facility] Sodium 136 mmol/L N 133- 145 [phone] Potassium 4.0 mmol/L N 3.5-5.0 Chloride 103 mmol/L N 101-111 Co2 Carbon Dioxide 25 mmol/L N 22-32 Anion Gap 8 mmol/L N 2-11 Glucose 91 mg/dL N 70-100 Blood Urea Nitrogen 15 mg/dL N 6-24 Creatinine 0.70 mg/dL N 0.51-0.95 BUN/Creatinine Ratio 21.4 High 8-20 Calcium 9.2 mg/dL N 8.6-10.3 Total Protein 6.6 g/dL N 6.4-8.9 Albumin 4.3 g/dL N 3.2-5.2 Globulin 2.3 g/dL N 2-4 Albumin/Globulin Ratio 1.9 N 1-3 Total Bilirubin 0.50 mg/dL N 0.2-1.0 Alkaline Phosphatase 170 U/L High 34-104 Alt 27 U/L N 7-52 Ast 19 U/L N 13-39 Egfr Non- 90.1 N >60 Egfr 115.9 N >60 11 Xray 03/25/2015 [facility] X-Ray, Cervical Decreased lordosis 12 Spine Complete 7 View Ua Inhouse 03/13/2015 In House Ua Glucose - 13 Ua Bilirubin - Ua Ketones - Ua Specific Edwards 1.020 Ua Blood - Ua PH 5.0 Ua Protein - Ua Urobilinogen - Ua Nitrite - Ua Leukocytes - Ua Inhouse 03/12/2014 In House Ua Glucose - Ua Bilirubin - Ua Ketones - Ua Specific Edwards 1.005 Ua Blood - Ua PH 6.0 Ua Protein - Ua Urobilinogen - Ua Nitrite - Ua Leukocytes - Pertussis PCR 02/23/2014 [facility] Bordetella Source Nasopharyngeal s <SEE N 14 [phone] NOTE> Bordetella pertussis PCR Negative N 15 Bordetella parapertussis PCR Negative N 16 Culture Urine Inhouse 12/31/2013 In House Colonies no growth Urine Micro Inhouse 12/31/2013 In House Ua WBC - Ua RBC - Ua Casts - Ua Epi - Ua Other - Ua Glucose - Ua Bilirubin - Ua Ketones - Ua Specific Edwards 1.010 Ua Blood - Ua PH 6.0 Ua Protein - Ua Urobilinogen - Ua Nitrite - Ua Leukocytes - GC/Chlamydia 12/31/2013 [facility] GC/Chlamydia Rna (SEE NOTE) 17 Amplified Rna [phone] Vitamin D, 25 08/16/2013 [facility] 25-Hydroxy Vitamin <4.0 ng/mL Hydroxy [phone] [phone] 25-Hydroxy Vitamin D3 20 ng/mL 25-Hydroxy Vitamin D Total 20 ng/mL 18 Laboratory test finding 08/16/2013 [facility] Vitamin B12 502 pg/mL 180-914 19 [phone] Folate 16.60 ng/mL >3.99 Erythrocyte Sed Rate 9 mm/Hr 0-14 Iron & Iron Binding Capacity 08/16/2013 [facility] Iron 131 g/dL 50-212 [phone] Unsaturated Iron Binding 181 g/dL Total Iron Binding Capacity 312 g/dL 250-450 % Iron Saturation 42 % 15-55 Comp Metabolic Panel 08/16/2013 [facility] Sodium 137 mmol/L 133- 145 [phone] Potassium 4.3 mmol/L 3.7-5.6 Chloride 106 mmol/L 101-111 Co2 Carbon Dioxide 27 mmol/L 22-32 Anion Gap 4 mmol/L 2-11 Glucose 91 mg/dL 70-100 Blood Urea Nitrogen 14 mg/dL 6-24 Creatinine 0.74 mg/dL 0.51-0.95 BUN/Creatinine Ratio 18.9 8-20 Calcium 9.3 mg/dL 8.6-10.3 Total Protein 6.4 g/dL 6.4-8.9 Albumin 4.2 g/dL 3.2-5.2 Globulin 2.2 g/dL 2-4 Albumin/Globulin Ratio 1.9 1-3 Total Bilirubin 0.40 mg/dL 0.2-1.0 Alkaline Phosphatase 95 U/L 34-104 Alt 16 U/L 7-52 Ast 14 U/L 13-39 Egfr Non- 85.3 >60 Egfr 109.6 >60 20 Laboratory test 08/16/2013 [facility] TSH (Thyroid 1.27 IU/mL 0.34- 5.60 finding [phone] Stimulating Horm) CBC Auto Diff 08/16/2013 [facility] White Blood Count 8.8 10^3/uL 4.8-10.8 [phone] Red Blood Count 4.54 10^6/uL 4.0-5.4 Hemoglobin 13.8 g/dL 12.0-16.0 Hematocrit 38 % 35-47 Mean Corpuscular Volume 84 fL 80-97 Mean Corpuscular Hemoglobin 30 pg 27-31 Mean Corpuscular HGB Conc 36 g/dL 31-36 Red Cell Distribution Width 13 % 10.5-15 Platelet Count 200 10^3/uL 150-450 Mean Platelet Volume 11 um3 High 7.4-10.4 Abs Neutrophils 5.0 10^3/uL 1.5-7.7 Abs Lymphocytes 2.9 10^3/uL 1.0-4.8 Abs Monocytes 0.8 10^3/uL 0-0.8 Abs Eosinophils 0.1 10^3/uL 0-0.6 Abs Basophils 0.1 10^3/uL 0-0.2 Abs Nucleated RBC 0 10^3/uL Granulocyte % 56.6 % 38-83 Lymphocyte % 32.8 % 25-47 Monocyte % 8.7 % 1-9 Eosinophil % 1.2 % 0-6 Basophil % 0.7 % 0-2 Nucleated Red Blood Cells % 0 Ua Inhouse 03/26/2013 In House Ua Glucose - Ua Bilirubin - Ua Ketones - Ua Specific Edwards 1.020 Ua Blood - Ua PH 6.0 Ua Protein - Ua Urobilinogen - Ua Nitrite - Ua Leukocytes - 1 void, clear, yellow 2 [id number] 3 SEE RESULT BELOW Name: SULEMA MATUTE : [address]: Tarsha Wynn MD Acct: [id number] Unit: [id number] AGE: 46 Location: [facility] Re02/16/17 SEX: F Status: DEP ER SPEC: [id number] NAIMA: 02/16/17-[address]: Arlen SMART REQ: [id number] RECD: 02/17/17 STATUS: JJ FIERRO DR: Yamil Flores MD _ SOURCE: URINE SPDESC: ORDERED: Urine Culture COMMENTS: [id number] Procedure Result Reported Site Urine Culture Final 02/18/17- 851 ML No Growth (<1,000 CFU/mL) * ML - MAIN LAB ([facility]) . END OF REPORT * ML=Testing performed at Main Lab DEPARTMENT OF PATHOLOGY, [address] [place] [address] Zach Fernando M.D. Director [facility] # [id number] 4 Conference Specialist: [id number] 5 SEE RESULT BELOW Name: SULEMA MATUTE : [address]: Philly CORREA Acct: [id number] Unit: [id number] AGE: 46 Location: [facility] Re11/04/16 SEX: F Status: REG REF SPEC: [id number] NAIMA: 11/04/16-[address] [facility] DR: Philly Kolb [facility] REQ: [id number] RECD: 11/04/16 STATUS: COMP _ SOURCE: THROAT SPDESC: ORDERED: Throat Culture COMMENTS: Culture and Sensitivities Procedure Result Reported Site Throat Culture Final 11/06/16- 1033 ML Organism 1 NORMAL SAMIRA Quantity 2+ Throat cultures are clinically indicated to detect the presence of group A strep, arcanobacterium and yeast. In certain cases, predominating organisms will be reported. * ML - MAIN LAB ([facility]) . END OF REPORT * ML=Testing performed at Main Lab DEPARTMENT OF PATHOLOGY, [address] [place] [address] Zach Fernando M.D. Director [facility] # [id number] 6 Because ethnic data is not always readily available, this report includes an eGFR for both -Americans and non- Americans. The National Kidney Disease Education Program (NKDEP) does not endorse the use of the MDRD equation for patients that are not between the ages of 18 and 70, are , have extremes of body size, muscle mass, or nutritional status, or are non- or non-. According to the National Kidney Foundation, irrespective of diagnosis, the stage of the disease is based on the level of kidney function: Stage Description GFR(mL/min/1.73 m(2)) 1 Kidney damage with normal or decreased GFR 90 2 Kidney damage with mild decrease in GFR 60-89 3 Moderate decrease in GFR 30-59 4 Severe decrease in GFR 15-29 5 Kidney failure <15 (or dialysis) 7 Because ethnic data is not always readily available, this report includes an eGFR for both -Americans and non- Americans. The National Kidney Disease Education Program (NKDEP) does not endorse the use of the MDRD equation for patients that are not between the ages of 18 and 70, are , have extremes of body size, muscle mass, or nutritional status, or are non- or non-. According to the National Kidney Foundation, irrespective of diagnosis, the stage of the disease is based on the level of kidney function: Stage Description GFR(mL/min/1.73 m(2)) 1 Kidney damage with normal or decreased GFR 90 2 Kidney damage with mild decrease in GFR 60-89 3 Moderate decrease in GFR 30-59 4 Severe decrease in GFR 15-29 5 Kidney failure <15 (or dialysis) 8 SEE RESULT BELOW Name: SULEMA MATUTE : [address]: Yamil Stewart DO Acct: [id number] Unit: [id number] AGE: 44 Location: [facility] Re06/10/15 SEX: F Status: REG REF SPEC: [id number] NAIMA: 06/10/15-[address]: Yamil Stewart DO REQ: [id number] RECD: 06/10/15-1317 STATUS: COMP _ SOURCE: URINE SPDESC: ORDERED: Urine Culture Procedure Result Reported Site Urine Culture Final 06/11/15- 1220 ML No Growth (<1,000 CFU/mL) * ML - MAIN LAB ([facility]) . END OF REPORT * ML=Testing performed at Main Lab DEPARTMENT OF PATHOLOGY, [address] [place] [address] Zach Fernando M.D. Director [facility] # [id number] 9 void, clear, dark yellow 10 Normal Range 180 to 914 Indeterminate Range 145 to 180 Deficient Range <145 11 Because ethnic data is not always readily available, this report includes an eGFR for both -Americans and non- Americans. The National Kidney Disease Education Program (NKDEP) does not endorse the use of the MDRD equation for patients that are not between the ages of 18 and 70, are , have extremes of body size, muscle mass, or nutritional status, or are non- or non-. According to the National Kidney Foundation, irrespective of diagnosis, the stage of the disease is based on the level of kidney function: Stage Description GFR(mL/min/1.73 m(2)) 1 Kidney damage with normal or decreased GFR 90 2 Kidney damage with mild decrease in GFR 60-89 3 Moderate decrease in GFR 30-59 4 Severe decrease in GFR 15-29 5 Kidney failure <15 (or dialysis) 12 no fracture. minimal degenerative changes. decreased lordosis. 13 void, clear, dark yellow 14 Nasopharyngeal swab 15 REFERENCE VALUE Not Applicable 16 REFERENCE VALUE Not Applicable ADDITIONAL INFORMATION Laboratory developed test. Test Performed by: [facility] - [address] [address] Unified Communications Engineer: Jarrell Haney M.D. 17 RUN DATE: 01/01/14 [facility] LAB LIVE PAGE 1 RUN TIME: [address] [place] [address] Specimen Inquiry Name: SULEMA MATUTE : [address]: Yamil Stewart DO Acct: [id number] Unit: [id number] AGE: 43 Location: [facility] Re12/31/13 SEX: F Status: REG REF SPEC: [id number] NAIMA: 12/31/[address]: Yamil Stewart DO REQ: [id number] RECD: 12/31/13 STATUS: COMP _ SOURCE: URINE SPDESC: ORDERED: ADRIANA/Radha RNA QUERIES: Medent Number [id number] Procedure Result Verified Site Chlamydia Trachomatis RNA Final 01/01/14- 1538 ML NEGATIVE for Chlamydia trachomatis rRNA GC (N. gonorrhoeae) RNA Final 01/01/14- 1531 ML NEGATIVE for Neisseria gonorrhoeae rRNA A negative result does not preclude the presence of a C. trachomatis or N. gonorrhoeae infection because results are dependent on adequate specimen collection, absence of inhibitors, and sufficient rRNA to be detected. Test results may be affected by improper specimen collection, improper storage, technical error, or specimen mixup. Limitations of the Procedure: The Aptima Combo 2 Assay is not intended for the evaluation of suspected sexual abuse or for other medico-legal indications. For those patients for whom a false positive result may have adverse psychosocial impact, the CDC recommends retesting by a method using an alternate technology. Therapeutic failure or success cannot be determined with the Aptima Combo 2 Assay since nucleic acid may persist following appropriate antimicrobial therapy. Results from the Aptima Combo 2 Assay should be interpreted in conjunction with other laboratory and clinical data available to the clinican. CONTINUED ON NEXT PAGE * ML=Testing performed at Main Lab DEPARTMENT OF PATHOLOGY, [facility] [employer] [place], [place] [address] Zach Fernando M.D. Director [facility] # [id number] RUN DATE: 01/01/14 [facility] LAB LIVE PAGE 2 RUN TIME: 1537 [employer] [place], [place] [address] Specimen Inquiry Patient: SULEMA MATUTE [id number] (Continued) Specimen: [id number] Collected: 12/31/13 Received: 12/31/13 (Continued) Procedure Result Verified Site GC (N. gonorrhoeae) RNA Final (continued) 01/01/14 3765 Performance characteristics for detecting C. trachomatis and N. gonorrhoeae are derived from high prevalence populations. Positive results in low prevalence populations should be interpreted carefully with the understanding that the likelihood of a false positive may be higher than a true positive. END OF REPORT * ML=Testing performed at Main Lab DEPARTMENT OF PATHOLOGY, [address] [place] [address] Zach Fernando M.D. Director [facility] # [id number] 18 -- REFERENCE VALUE -- 25-HYDROXY D TOTAL (D2+D3) Optimum levels in the healthy population are 20-50, patients with bone disease may benefit from higher levels within this range. Test Performed by: [place] [address] Unified Communications Engineer: Nikolay Wells III, M.D. 19 Normal Range 180 to 914 Indeterminate Range 145 to 180 Deficient Range <145 20 Because ethnic data is not always readily available, this report includes an eGFR for both -Americans and non- Americans. The National Kidney Disease Education Program (NKDEP) does not endorse the use of the MDRD equation for patients that are not between the ages of 18 and 70, are , have extremes of body size, muscle mass, or nutritional status, or are non- or non-. According to the National Kidney Foundation, irrespective of diagnosis, the stage of the disease is based on the level of kidney function: Stage Description GFR(mL/min/1.73 m(2)) 1 Kidney damage with normal or decreased GFR 90 2 Kidney damage with mild decrease in GFR 60-89 3 Moderate decrease in GFR 30-59 4 Severe decrease in GFR 15-29 5 Kidney failure <15 (or dialysis) Procedures Date Code Description Status 05/24/2018 46012459 Mammogram Completed 03/21/2017 21506N Visual Acuity Screening Test - for Dot exams Completed 03/25/2015 96390 C-Spine, Complete, Incl Obl, FL+ Completed 03/13/2015 98434 Visual Acuity Screening Test Completed 03/12/2014 36195 Visual Acuity Screening Test Completed 03/26/2013 83816 Visual Acuity Screening Test Completed Encounters Type Date Location Provider Dx Diagnosis Office Visit 07/03/2018 Main Office Yamil Stewart, F33.9 Major depressive 2:45p D.O. 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 disorder F33.9 Major depressive disorder, recurrent, unspecified I10 Essential (primary) hypertension Office Visit 03/21/2017 2:45p Main Office Yamil Stewart, Z02.4 Encounter for D.O. examination for driving license R31.29 Other microscopic hematuria Office Visit 02/04/2017 9:00a Main Office Lisseth Camp F41.1 Generalized anxiety P.A. disorder F33.9 Major depressive disorder, recurrent, unspecified I10 Essential (primary) hypertension Z79.899 Other assisted (current) drug therapy Office Visit 11/04/2016 1:35p Main Office Philly Kolb J02.0 Streptococcal PA pharyngitis Office Visit 10/29/2016 9:20a Main Office Lisseth [place], J02.0 Streptococcal P.A. pharyngitis F41.1 Generalized anxiety disorder Z23 Encounter for immunization Z41.8 Encntr for oth proc for purpose oth than [facility] N76.0 Acute vaginitis Office Visit 10/14/2016 11:00a Main Office Lisseth Camp, J02.0 Streptococcal P.A. pharyngitis N76.0 Acute vaginitis Z23 Encounter for immunization K64.0 First degree hemorrhoids Z41.8 Encntr for oth proc for purpose oth than [facility] J02.9 Acute pharyngitis, unspecified Office Visit 08/31/2016 8:30a Main Office Yamil Stewart, F41.1 Generalized anxiety D.O. disorder F33.9 Major depressive disorder, recurrent, unspecified G47.00 Insomnia, unspecified G43.109 Migraine with aura, not intractable, w/o status migrainosus Office Visit 05/27/2016 8:45a Main Office Yamil Stewart, F41.1 Generalized anxiety D.O. disorder F33.9 Major depressive disorder, recurrent, unspecified G47.00 Insomnia, unspecified G43.109 Migraine with aura, not intractable, w/o status migrainosus D22.5 Melanocytic nevi of trunk R23.4 Changes in skin texture Office Visit 02/24/2016 8:55a Main Office Yamil Stewart, F33.9 Major depressive D.O. disorder, recurrent, unspecified F41.1 Generalized anxiety disorder G47.00 Insomnia, unspecified G43.109 Migraine with aura, not intractable, w/o status migrainosus Office Visit 11/25/2015 8:45a Main Office Yamil Stewart, F33.9 Major depressive D.O. disorder, recurrent, unspecified F41.1 Generalized anxiety disorder G47.00 Insomnia, unspecified Office Visit 08/26/2015 8:55a Main Office Yamil Stewart F33.9 Major depressive D.O. disorder, recurrent, unspecified F41.1 Generalized anxiety disorder T75.3xxD Motion sickness, subsequent encounter G47.00 Insomnia, unspecified Z23 Encounter for immunization Office Visit 07/31/2015 8:45a Main Office Sopchak, Yamil, F33.9 Major depressive D.O. disorder, recurrent, unspecified F41.1 Generalized anxiety disorder R19.7 Diarrhea, unspecified Office Visit 06/27/2015 9:45a Main Office Alistair Ogden, R10.84 Generalized M.D. abdominal pain Office Visit 06/24/2015 8:45a Main Office Yamil Stewart, F33.9 Major depressive D.O. disorder, recurrent, unspecified F41.1 Generalized anxiety disorder G43.109 Migraine with aura, not intractable, w/o status migrainosus R30.0 Dysuria Office Visit 06/10/2015 9:30a Main Office Yamil Stewart, F33.9 Major depressive D.O. disorder, recurrent, unspecified F41.1 Generalized anxiety disorder G43.109 Migraine with aura, not intractable, w/o status migrainosus R30.0 Dysuria Office Visit 06/05/2015 12:55p Main Office Yamil Stewart, R30.0 Dysuria D.O. Office Visit 04/29/2015 8:45a Main Office Yamil Stewart, F33.9 Major depressive D.O. disorder, recurrent, unspecified F41.1 Generalized anxiety disorder Office Visit 04/08/2015 8:45a Main Office Yamil Stewart, F33.9 Major depressive D.O. disorder, recurrent, unspecified F41.1 Generalized anxiety disorder G43.109 Migraine with aura, not intractable, w/o status migrainosus Office Visit 03/25/2015 8:55a Main Office Yamil Stewart, W00.0xxA Fall on same D.O. level due to ice and snow, initial encounter F33.9 Major depressive disorder, recurrent, unspecified G43.109 Migraine with aura, not intractable, w/o status migrainosus M54.2 Cervicalgia F41.1 Generalized anxiety disorder I10 Essential (primary) hypertension Office Visit 03/13/2015 9:15a Main Office Yamil Stewart, Z02.4 Encounter for D.O. examination for driving license 401.9 Hypertension Unspec Z01.00 Encounter for exam of eyes and vision w/o abnormal findings Office Visit 10/24/2014 11:15a Main Office Yamil Stewart, 300.02 Anxiety Disorder D.O. Generalized 296.30 Depressive Disorder Major Recurrent Unspec 401.9 Hypertension Unspec 780.79 Malaise And Fatigue Other Office Visit 03/12/2014 8:55a Main Office Yamil Stewart, V72.0 Examination Eyes & D.O. Vision V70.0 Examination General Medical Routine AT Health Care Facility 300.02 Anxiety Disorder Generalized V04.81 Need For Prophylactic Vaccination & Inoculation/Influenza V07.2 Prophylactic Immunotherapy Office Visit 02/23/2014 10:30a Main Office Yamil Stewart D.O. 786.2 Cough 625.6 Stress Incontinence Female Office Visit 12/31/2013 1:30p Main Office Yamil Stewart, 296.30 Depressive D.O. Disorder Major Recurrent Unspec 300.02 Anxiety Disorder Generalized 401.9 Hypertension Unspec 595.0 Cystitis Acute Office Visit 12/22/2013 10:45a Main Office uLis Pimentel 296.30 Depressive Ceasar Daley Disorder Major Recurrent Unspec 300.02 Anxiety Disorder Generalized 401.9 Hypertension Unspec Office Visit 11/12/2013 2:45p Main Office Yamil Stewart, 300.02 Anxiety Disorder D.O. Generalized 296.30 Depressive Disorder Major Recurrent Unspec 401.9 Hypertension Unspec Office Visit 08/16/2013 12:55p Main Office Yamil Stewart, 300.02 Anxiety Disorder D.O. Generalized 296.30 Depressive Disorder Major Recurrent Unspec 780.79 Malaise And Fatigue Other Office Visit 06/30/2013 9:00a Main Office Yamil Stewart, 300.02 Anxiety Disorder D.O. Generalized 401.9 Hypertension Unspec 296.30 Depressive Disorder Major Recurrent Unspec Office Visit 04/23/2013 2:30p Main Office Yamil Stewart, 296.30 Depressive D.O. Disorder Major Recurrent Unspec 401.9 Hypertension Unspec 300.02 Anxiety Disorder Generalized Office Visit 03/26/2013 3:00p Main Office Yamil Stewart, 401.9 Hypertension Unspec D.O. 300.02 Anxiety Disorder Generalized V70.3 Examination Other Medical For Administrative Purpose V72.0 Examination Eyes & Vision V61.20 Counseling For Parent Child Problem Unspec V81.6 Screening For Genitourinary Conditions Other & Unspec Office Visit 02/22/2013 12:55p Main Office Yamil Stewart, 300.02 Anxiety Disorder D.OAvel Generalized 784.0 Headache 311 Depressive Disorder Not Elsewhere Spec Plan of Treatment Future Appointment(s):10/02/2018 2:15 pm - Yamil Stewart D.O. at Main [id number]/03/2018 - Yamil Stewart D.O.F33.9 Major depressive disorder, recurrent, unspecifiedFollow up:3 months recheck anxiety/depression with GAD7 and UHA7N64.1 Generalized anxiety pgjcdurcX70.109 Migraine with aura, not intractable, without status [id number] Essential (primary) zlbbzgtzagrcT93.00 Insomnia, unmvanqfediO38.899 Other assisted (current) drug therapy
--- NOTE | 2018-07-08 17:29 | UC ---
Throat Pain/Nasal Drake HPI - HPI Summary HPI Summary: 47 yo female presents with cough and sore throat. She tells me that for the last 3 days she has had a sore throat and irritating dry cough. Her cough is worse at night. She has been taking liquid cough syrup with little relief. She does not smoke. Denies fever, chills, sinus symptoms, SOB, chest pain. - History of Current Complaint Stated Complaint: SORE THROAT Time Seen by Provider: 07/08/18 17:28 Hx Obtained From: Patient Hx Last Menstrual Period: 05/09/2017 Onset/Duration: Sudden Onset Severity: Severe Pain Intensity: 10 Pain Scale Used: 0-10 Numeric Cough: Nonproductive - Allergies/Home Medications Allergies/Adverse Reactions: Allergies Allergy/AdvReac Type Severity Reaction Status Date / Time codeine Allergy GI Upset Verified 07/08/18 17:32 Home Medications: Home Medications Oxybutynin TAB* [Ditropan TAB*] 5 mg PO DAILY 07/08/18 [History Confirmed ] PMH/Surg Hx/FS Hx/Imm Hx Neurological History: Seizures, Migraine Psychological History: Anxiety - Surgical History Surgical History: Yes Surgery Procedure, Year, and Place: ANKLE SURGERY- A TEENAGER. TUBAL LIGATION- 5 YEARS AGO- [facility] [place]. D/C DR. SAGASTUME 10/19 - Family History Known Family History: Positive: Hypertension Negative: Cardiac Disease, Respiratory Disease - Social History Occupation: Employed Full-time Lives: With Family Alcohol Use: Rare Substance Use Type: Prescribed Smoking Status (MU): Never Smoked Tobacco Review of Systems All Other Systems Reviewed And Are Negative: Yes Constitutional: Positive: Negative Skin: Positive: Negative Eyes: Positive: Negative ENT: Positive: Sore Throat Respiratory: Positive: Cough Cardiovascular: Positive: Negative Gastrointestinal: Positive: Negative Neurovascular: Positive: Negative Neurological: Positive: Negative Psychological: Positive: Negative Physical Exam - Summary Physical Exam Summary: GENERAL: NAD. WDWN. No pain distress. SKIN: No rashes, sores, lesions, or open wounds. HEENT: Head: AT/NC Eyes: EOM intact. Conjunctiva clear without inflammation or discharge. Ears: Hearing grossly normal. TMs intact, no bulging, erythema, or edema. Nose: Nasal mucosa pink and moist. NTTP maxillary and frontal sinus. Throat: Posterior oropharynx with mild erythema. No exudates or tonsillar enlargement. Uvula midline. NECK: Supple. Nontender. No lymphadenopathy. CHEST: CTAB. No r/r/w. No accessory muscle use. Breathing comfortably and in no distress. CV: RRR. Without m/r/g. Pulses intact. Cap refill <2seconds NEURO: Alert. PSYCH: Age appropriate behavior. Triage Information Reviewed: Yes Vital Signs: Vital Signs: Temp Pulse Resp BP Pulse Ox 98.9 F 81 18 151/98 100 07/08/18 17:29 07/08/18 17:29 07/08/18 17:29 07/08/18 17:29 07/08/18 17:29 Laboratory Tests 07/08/18 17:46 Group A Strep Rapid Negative Vital Signs Reviewed: Yes Throat Pain/Nasal Course/Dx - Course Course Of Treatment: POC strep negative. Suspect viral illness. Will treat with tessalon and prednisone. - Differential Dx/Diagnosis Provider Diagnosis: Viral syndrome, Cough Discharge - Sign-Out/Discharge Documenting (check all that apply): Patient Departure All imaging exams completed and their final reports reviewed: No Studies - Discharge Plan Condition: Stable Disposition: HOME Prescriptions: Benzonatate CAP* [Tessalon 100 MG CAP*] 100 mg PO TID PRN #21 cap PRN Reason: Cough methylPREDNISolone [Medrol Dosepak 4 MG*] 0 mg PO .SEE LENA INSTRUCTION #1 lena Patient Education Materials: Acute Cough (ED) Referrals: Yamil Stewart DO [Primary Care Provider] - Additional Instructions: If you develop a fever, shortness of breath, chest pain, new or worsening symptoms - please call your PCP or go to the ED immediately. Your blood pressure was high at todays visit. Please see your primary provider within 4 weeks for recheck and re-evaluation. - Billing Disposition and Condition Condition: STABLE Disposition: Home
[2018-07-08 17:32] VITALS: BP 151/98
[2018-07-08] MEDS ORDERED: Benzonatate CAP* 100 MG PO ONE (17:45)
[2018-07-08] MEDS ORDERED: predniSONE TAB* 20 MG PO ONE (17:46)
== END 2018-07-08 17:57 | disposition home or self-care (01) ==
LOC: UCEAST 16:56
DX: B34.9 Viral infection, unspecified (principal); R05 Cough; R56.9 Unspecified convulsions; G43.909 Migraine, unspecified, not intractable, without status migrainosus; F41.9 Anxiety disorder, unspecified; Z88.5 Allergy status to narcotic agent
CPT/HCPCS: 87651; 99212; A9270-GY; G0463; J7512

== ENCOUNTER 2018-07-10 19:34 | Emergency (ER) | payer OTHER ==
[2018-07-10 20:05] VITALS: BP 164/75
[2018-07-10] MEDS ORDERED: Albuterol/Ipratropium NEB.SOL* Albuterol 2.5 MG/Ipratropium 0.5 MG 3 ML INH ONE (20:12)
--- NOTE | 2018-07-10 20:24 | ED ---
Respiratory - HPI Summary HPI Summary: 47 yr old female with the complaint of continued cough. She was seen here a couple of days ago and put on tessalon and steroids. She reports that she is up most of the night coughing. She has some shortness of breath, and has continued sore throat with some nasal congestion. She denies a history of asthma. She reports her voice has gotten hoarse as well. - History of Current Complaint Chief Complaint: UCGeneralIllness Stated Complaint: COUGH Time Seen by Provider: 07/10/18 20:08 Pain Intensity: 7 - Allergy/Home Medications Allergies/Adverse Reactions: Allergies Allergy/AdvReac Type Severity Reaction Status Date / Time codeine Allergy GI Upset Verified 07/08/18 17:32 PMH/Surg Hx/FS Hx/Imm Hx Endocrine/Hematology History: Denies: Hx Diabetes, Hx Thyroid Disease Cardiovascular History: Denies: Hx Hypertension Respiratory History: Denies: Hx Asthma, Hx Chronic Obstructive Pulmonary Disease (COPD) GI History: Denies: Hx Ulcer Sensory History: Denies: Hx Contacts or Glasses, Hx Hearing Aid Opthamlomology History: Denies: Hx Contacts or Glasses Neurological History: Reports: Hx Migraine - HX OF PAST 30 YEARS Psychiatric History: Reports: Hx Anxiety - ON MEDICATION FOR, Hx Depression - ON MEDICATION FOR - Cancer History Hx Chemotherapy: No Hx Radiation Therapy: No - Surgical History Surgery Procedure, Year, and Place: ANKLE SURGERY- A TEENAGER. TUBAL LIGATION- 5 YEARS [place]GO[place] [facility] [place]. SAGASTUME 10/19 Hx Anesthesia Reactions: No Infectious Disease History: No Infectious Disease History: Denies: Hx Clostridium Difficile, Hx Hepatitis, Hx Human Immunodeficiency Virus (HIV), Hx of Known/Suspected MRSA, Hx Shingles, Hx Tuberculosis, Hx Known/ Suspected VRE, Hx Known/Suspected VRSA, History Other Infectious Disease, Traveled Outside the [place] in Last 30 Days - Family History Known Family History: Positive: Hypertension Negative: Cardiac Disease, Respiratory Disease - Social History Occupation: Employed Full-time Alcohol Use: Rare Substance Use Type: Reports: Prescribed Smoking Status (MU): Never Smoked Tobacco Review of Systems Constitutional: Negative Positive: Sore Throat Positive: Cough All Other Systems Reviewed And Are Negative: Yes Physical Exam Triage Information Reviewed: Yes Vital Signs On Initial Exam: Initial Vitals Temp Pulse Resp BP Pulse Ox 98.0 F 78 16 164/75 100 07/10/18 20:00 07/10/18 20:00 07/10/18 20:00 07/10/18 20:00 07/10/18 20:00 Vital Signs Reviewed: Yes Appearance: Positive: Well-Appearing, No Pain Distress Skin: Positive: Warm, Skin Color Reflects Adequate Perfusion Head/Face: Positive: Normal Head/Face Inspection Eyes: Positive: EOMI ENT: Positive: Normal ENT inspection, Pharynx normal, Nasal congestion, TMs normal, Other - voice quality hoarse and consistent with laryngitis Neck: Positive: Nontender Respiratory/Lung Sounds: Negative: Stridor, Wheezes Cardiovascular: Positive: RRR. Negative: Murmur Abdomen Description: Positive: Nontender Musculoskeletal: Positive: Strength/ROM Intact. Negative: Edema Left, Edema Right Neurological: Positive: Sensory/Motor Intact, Alert, Oriented to Person Place, Time, CN Intact II-III Diagnostics - Vital Signs Vital Signs Temp Pulse Resp BP Pulse Ox 07/10/18 20:00 98.0 F 78 16 164/75 100 - Laboratory Lab Statement: Any lab studies that have been ordered have been reviewed, and results considered in the medical decision making process. - Radiology aggie velazquez chest Radiology Interpretation Completed By: ED Physician - NAD Re-Evaluation - Re-Evaluation First Eval Re-Evaluation Time: 21:04 Change: Improved Comment: The patient has much less coughing after the duo neb. Appears more comfortable. Disposition - Course Course Of Treatment: 47 yr old with possible atypical pneumonia and coughing, laryngitis. Her chest xray per my read looked ok, but i am covering her with biaxin for possible mycoplasma, and also giving her an albuterol MDI. She already has tesalon perles and also medrol dose kaleigh which she will continue. - Diagnoses Provider Diagnoses: Atypical pneumonia, Hypertension, Laryngitis Discharge - Sign-Out/Discharge Documenting (check all that apply): Patient Departure All imaging exams completed and their final reports reviewed: No - Discharge Plan Condition: Good Disposition: HOME Prescriptions: Albuterol HFA INHALER* [Ventolin HFA Inhaler*] 1 - 2 puff INH Q4H PRN #1 mdi PRN Reason: Cough Clarithromycin TAB* [Biaxin 500 MG TAB*] 500 mg PO BID #20 tab Patient Education Materials: Laryngitis (ED), Bacterial Pneumonia (ED), Hypertension (ED) Referrals: Yamil Stewart DO [Primary Care Provider] - 1 Day - Billing Disposition and Condition Condition: GOOD Disposition: Home
[2018-07-10] MEDS ORDERED: Clarithromycin TAB* 500 MG PO ONE (20:58)
--- NOTE | 2018-07-11 14:09 | UC ---
- Progress Note Progress Note: chest xray report: IMPRESSION: NO EVIDENCE FOR ACTIVE CARDIOPULMONARY DISEASE. Course/Dx - Diagnoses Provider Diagnoses: Atypical pneumonia, Hypertension, Laryngitis Discharge - Sign-Out/Discharge Documenting (check all that apply): Patient Departure All imaging exams completed and their final reports reviewed: Yes - Discharge Plan Condition: Good Disposition: HOME Prescriptions: Albuterol HFA INHALER* [Ventolin HFA Inhaler*] 1 - 2 puff INH Q4H PRN #1 mdi PRN Reason: Cough Clarithromycin TAB* [Biaxin 500 MG TAB*] 500 mg PO BID #20 tab Patient Education Materials: Laryngitis (ED), Bacterial Pneumonia (ED), Hypertension (ED) Referrals: Yamil Stewart DO [Primary Care Provider] - 1 Day - Billing Disposition and Condition Condition: GOOD Disposition: Home
== END 2018-07-10 21:07 | disposition home or self-care (01) ==
LOC: UCCORT 19:34
DX: J18.9 Pneumonia, unspecified organism (principal); J04.0 Acute laryngitis; I10 Essential (primary) hypertension; R05 Cough; F41.9 Anxiety disorder, unspecified; Z88.5 Allergy status to narcotic agent
CPT/HCPCS: 71046; 99212; A9270-GY; G0463

== ENCOUNTER 2018-08-10 19:27 | Emergency (ER) | payer OTHER ==
--- OUTSIDE RECORDS SUMMARY | 2018-08-10 19:32 | XMS REPORT | Continuity of Care Document ---
:1970 External Reference #:[id number] Author Name Yamil Stewart D.O. 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 Status Currently Working [...] active Contraceptive Methods Tubal Ligation Age 1st [place] 16 Years Old Allergies, Adverse Reactions, Alerts Active Allergies Reaction Severity Comments Date Codeine Itching 02/22/2013 Medications Active Medications SIG Qnty Indications Ordering Date Provider Albuterol Sulfate HFA Inl 1 To 2 PFS Unknown 07/11/2018 PO Q 4 H PRF 108(90Base) mcg/Act Cough Aerosol Clarithromycin TK 1 T PO bid Unknown 07/11/2018 500mg Tablets x 10 days Benzonatate TK 1 C PO tid Unknown 07/09/2018 100mg Capsules prn Cough Methylprednisolone TK Utd On Pack Unknown 07/09/2018 4mg TBPK Amitriptyline HCL 1-2 by mouth 180tabs F33.9 Yamil Stewart, 12/26/2017 10mg Tablets every night at D.O. bedtime G47.00 Levetiracetam take 1 tablet once [...] Medications Keppra 1 by mouth every G43.109 Yamil Stewart, 12/26/2017 - 500mg day D.O. 12/26/2017 Tablets F41.1 F33.9 Levetiracetam 1 by mouth daily in 90tabs [facility], 07/04/2017 - 250mg Tablets addition to 500mg Yamil D.O. 12/26/2017 at night. Imitrex take 1 tablet by 14ta Terry, 06/16/2017 - 50mg Tablets mouth 2 times per Yamil D.O. 07/16/2017 day at least 2 hours between dosesas needed for migraine headache Ondansetron 1-2 by mouth three 10tabs Terry, 06/16/2017 - 4mg Tablets times a day as Yamil D.O. 06/30/2017 Dispers needed for nausea Xanax 1-2 tab by mouth 3 90tabs F41.1 Thelmacodaniella, 05/26/2017 - 0.25mg Tablets x a day code b mdd Ceasar Sainz 06/27/2017 4 mdd 4 MDD 4 MDD 4 Omeprazole 1 by mouth daily in 90caps [facility], 01/31/2017 - 40mg Capsules DR the Am as needed Yamil D.O. 12/25/2017 Penicillin V Potassium 1 tab tid x 10 days 30tabs J02.0 Alin, 2016 - 500mg for recurring strep Ceasar Sainz 11/13/2016 Tablets Cefdinir 1 twice a day x 10 20caps J02.9 Terry, 10/14/2016 - 300mg Capsules days Santiago Lobo 10/24/2016 Fluconazole take on by mouth 3tabs N76.0 Terry, 10/14/2016 - 150mg Tablets per week x 3 weeks Santiago Lobo 11/04/2016 Methylprednisolone 6 tabs on day 1; 21tabs Terry, 12/11/2015 - 4mg then 5 tabs day2; Delores LoboOAvel 12/17/2015 Tablets then 4 tabs ay3; then 3 tabs day4; then 2 tabs day 5; then 1 tab day 6 Hydroxyzine HCL 1 by mouth three 90tabs G47.00 Terry, 11/25/2015 - 25mg Tablets times a day as Santiago Lobo 05/26/2016 needed for anxiety/sleep Meclizine HCL take 1 tablet by 45tabs T75.3x Terry, 08/26/2015 - 25mg Tablets mouth 3 times per xA Delores LoboOAvel 12/25/2017 day as needed for sensation of motion Scopolamine Transdermal 1 ptch every 3 days 15units T75.3x Terry, 2015 - Patch as needed for xA Delores LoboOAvel 08/26/2015 1.5mg Patch motion sickness Ciprofloxacin HCL 1 tab twice a day x 28tabs R19.7 Terry, 07/31/2015 - 500mg 7 if needed for Santiago Loob 09/29/2015 Tablets traveler's diarrhea Lamotrigine 1 by mouth daily 14tabs F33.9 Terry, 06/10/2015 - 25mg Tablets for 1-2 week then Delores LoboOAvel 06/24/2015 stop. Keppra 1 by mouth a day 90tabs G43.10 Terry, 06/10/2015 - 250mg Tablets for mood 9 Delores LoboOAvel 12/25/2017 stabilization F41.1 F33.9 Ciprofloxacin HCL 1 [...] Tablets a day as needed for anxiety Azithromycin take 2 tablets 6tabs 786.2 Terry Yamil, 02/23/2014 - 250mg by mouth one D.O. 03/08/2014 Tablets time on the first day then take 1 tablet by mouth daily for 4 days Proair HFA 1-2 puffs four 8.5units 786.2 Terry Yamil, 02/23/2014 - 108(90Base) times a day as D.O. 03/25/2015 mcg/Act Aerosol needed Benzonatate 1 by mouth 90caps 786.2 Yamil Stewart, 02/23/2014 - 200mg three times a D.O. 03/13/2015 Capsules day as needed cough Prozac 1 by mouth 90caps 296.30 Yamil [...] day 90caps 300.02 Terry, 06/30/2013 - 10mg Yamil, D.O. 12/22/2013 Capsules Escitalopram take 1 tablet by 60tabs Unknown 04/23/2013 - Oxalate mouth once daily 08/08/2013 5mg Tablets Lexapro 1 po qd 90tabs 300.02 Terry 04/23/2013 - 5mg Tablets Mariya Lobo.O. 06/30/2013 Propranolol HCL ER 1 by mouth every day 30caps 401.9 Terry, 03/29/2013 - for blood pressure Delores LoboO. 03/29/2013 60mg Caps ER 24HR Propranolol HCL ER take 1 capsule by 90caps 401.9 [facility] 03[facility]26[facility]2013 - mouth daily for high Delores LoboO. 10/24/2014 80mg Caps ER 24HR blood pressure Alprazolam 1-2 tab by mouth 3 x 90tabs F41.1 Silcodaniella, 03/23/2013 - 0.25mg a day code a, mdd 4 Ceasar Sainz 05/26/2017 Tablets Alprazolam 1 po tid 90tabs 300.02 [facility], 02/21/2013 - 0.25mg Mariya Lobo.O. 03/26/2013 Tablets Butalbital/Acetamin Unknown 02/21/2013 - ophen/Caffeine 03/26/2013 50-325-40mg Tablets Sumatriptan Inhale 1 spray into 1units [facility], 02/21/2013 - nostril daily 4 times Mariya Lobo.OAvel 03/26/2013 20mg/Act Solution per 30 days in 1 nostril may repeat dose after 2 hours as needed for migraine heada Zolpidem Tartrate Take 1 Tablet AT Unknown - Bedtime as Needed For 03/26/2013 10mg Tablets Insomnia. Max Daily Dose Is 1 T Fluvirin PF inject 0.5 milliliter Unknown - intramuscularly 03/26/2013 PF 12-13 Suspension Fluvirin PF Vanevery, - MD Janel 03/26/2013 PF 12-13 Suspension Omeprazole Unknown - 20mg 03/26/2013 Capsules Omeprazole Unknown - 20mg 03/26/2013 Capsules Polyethylene Glycol Unknown - 3350 03/26/2013 3350NF Powder Adams-28 Unknown - 03/26/2013 0.15-30mg-mcg Tablets Trazodone HCL [...] mouth every day G43.109 Sopchak, - 500mg Yamil, D.O. 12/25/2017 F41.1 F33.9 Ciprofloxacin HCL Unknown - [...] 24HR Cymbalta Unknown - 60mg Caps DR Part 03/26/2013 Cymbalta take 1 capsule by mouth [...] CPT Code Status Date Vaccine Lot # [id number] Given 10/29/2016 Influenza Virus Vaccine, Quadrivalent, Split, [id number] Preservative Free 80289 Given 10/14/2016 MMR Virus Immunization [id number] 54672 Given 08/26/2015 Adacel or Boostrix, TDaP [id number] 44030 Given 03/12/2014 flu mist - live influenza virus vaccine for [id number] intranasal use 85702 Given 10/03/2007 Td Immunization 57996 Given 10/03/2007 Hep A, Adult 21409 Given 04/15/2007 Hep A, Adult Vital Signs [...] Date Facility Test Result H/L Range Note Laboratory test 07/08/2018 [facility] Rapid Strep Negative Negative 1 finding [phone] Molecular Ua Inhouse 03/21/2017 In House Ua Glucose - 2 Ua Bilirubin - Ua Ketones - Ua Specific Golf 1.015 Ua Blood lg Ua PH 6.0 Ua Protein - Ua Urobilinogen - Ua Nitrite - Ua Leukocytes - Laboratory 02/16/2017 [facility] Urine Culture And SEE RESULT 3, 4 test finding [phone] Sensitivities BELOW Poc Urinalysis 02/16/2017 [facility] Poc Glucose, Negative Negative [phone] Urine Poc Bilirubin, Urine Negative Negative Poc Ketone, Urine Negative Negative Poc Specific Golf, Urine 1.020 N 1.010-1.030 Poc Blood, Urine Negative Negative Poc pH, Urine 6.5 N 5-9 Poc Protein, Urine Negative Negative Poc Urobilinogen, Urine 0.2 Negative Poc Nitrite, Urine Negative Negative Poc Leukocytes, Urine Negative Negative Poc Color, Urine Yellow Poc Clarity, Urine Clear 5 Laboratory test 11/04/2016 In House Culture Throat negative finding Rapid Screen Laboratory test 11/04/2016 [facility] Culture Throat SEE RESULT BELOW 6 finding [phone] Laboratory test 10/29/2016 In House Culture Throat negative finding Rapid Screen Culture Throat positive Laboratory test 10/14/2016 In House Culture Throat positive finding Rapid Screen Laboratory test 05/27/2016 [facility] Magnesium 2.4 mg/dL N 1.9-2.7 finding [phone] Vitamin D Total 25(Oh) 24.1 ng/mL Low 30-50 TSH (Thyroid Stim Horm) 2.42 mcIU/mL N 0.34-5.60 Comp Metabolic Panel 05/27/2016 [facility] Sodium 138 mmol/L N 133- 145 [phone] Potassium 4.3 mmol/L N 3.5-5.0 Chloride 101 [...] 73.7 N >60 Egfr 94.8 N >60 7 CBC Auto Diff 05/27/2016 [facility] White Blood Count 7.5 10^3/uL N 3.5-10.8 [phone] Red Blood Count 5.09 10^6/uL N 4.0-5.4 [...] % 0.1 N CBC Auto Diff 06/27/2015 [facility] White Blood Count 8.4 10^3/uL N 3.5-10.8 [phone] Red Blood Count 4.95 10^6/uL N 4.0-5.4 [...] % 0.1 N Comp Metabolic Panel 06/27/2015 [facility] Sodium 135 mmol/L N 133- 145 [phone] Potassium 4.0 mmol/L N 3.5-5.0 Chloride 103 [...] 75.1 N >60 Egfr 96.5 N >60 8 Urine Micro Inhouse 06/27/2015 In House Ua WBC 0-3 Ua RBC 0-2 Ua Casts - Ua Epi - Ua Other - Ua Glucose - Ua Bilirubin sm Ua Ketones - Ua Specific Golf 1.020 Ua Blood nh tr Ua PH 6.0 Ua Protein - Ua Urobilinogen - Ua Nitrite - Ua Leukocytes - Laboratory test 06/10/2015 [facility] Urine Culture And SEE RESULT 9 finding [phone] Sensitivities BELOW Culture Urine 06/05/2015 In House Colonies negative 10 Inhouse Urine Micro 06/05/2015 In House Ua WBC - Inhouse Ua RBC - Ua Casts - Ua Epi many Ua Other - Ua Glucose - Ua Bilirubin - Ua Ketones - Ua Specific Golf 1.020 Ua Blood - Ua PH 5.0 Ua Protein - Ua Urobilinogen - Ua Nitrite - Ua Leukocytes - Laboratory test 03/25/2015 [facility] TSH (Thyroid 1.59 ?IU/mL N 0.34 -5.60 finding [phone] Stim Horm) Vitamin B12 486 pg/mL N 180-914 11 Vitamin D Total 25(Oh) 18.7 ng/mL Low 30-50 Magnesium 2.1 mg/dL N 1.9-2.7 CBC Auto Diff 03/25/2015 [facility] White Blood Count 8.8 10^3/uL N 3.5-10.8 [phone] Red Blood Count 4.96 10^6/uL N 4.0-5.4 [...] % 0 N Comp Metabolic Panel 03/25/2015 [facility] Sodium 136 mmol/L N 133- 145 [phone] Potassium 4.0 mmol/L N 3.5-5.0 Chloride 103 [...] 90.1 N >60 Egfr 115.9 N >60 12 Xray 03/25/2015 [facility] X-Ray, Cervical Decreased lordosis 13 Spine Complete 7 View Ua Inhouse 03/13/2015 In House Ua Glucose - 14 Ua Bilirubin - Ua Ketones - Ua Specific Golf 1.020 Ua Blood - Ua PH 5.0 Ua Protein - Ua Urobilinogen - Ua Nitrite - Ua Leukocytes - Ua Inhouse 03/12/2014 In House Ua Glucose - Ua Bilirubin - Ua Ketones - Ua Specific Golf 1.005 Ua Blood - Ua PH 6.0 Ua Protein - Ua Urobilinogen - Ua Nitrite - Ua Leukocytes - Pertussis PCR 02/23/2014 [facility] Bordetella Source Nasopharyngeal s <SEE N 15 [phone] NOTE> Bordetella pertussis PCR Negative N 16 Bordetella parapertussis PCR Negative N 17 Culture Urine Inhouse 12/31/2013 In House Colonies no growth Urine Micro Inhouse 12/31/2013 In House Ua WBC - Ua RBC - Ua Casts - Ua Epi - Ua Other - Ua Glucose - Ua Bilirubin - Ua Ketones - Ua Specific Golf 1.010 Ua Blood - Ua PH 6.0 Ua Protein - Ua Urobilinogen - Ua Nitrite - Ua Leukocytes - GC/Chlamydia 12/31/2013 [facility] GC/Chlamydia Rna (SEE NOTE) 18 Amplified Rna [phone] Vitamin D, 25 08/16/2013 [facility] 25-Hydroxy Vitamin <4.0 ng/mL Hydroxy [phone] D2 25-Hydroxy Vitamin D3 20 ng/mL 25-Hydroxy Vitamin D Total 20 ng/mL 19 Laboratory test finding 08/16/2013 [facility] Vitamin B12 502 pg/mL 180-914 20 [phone] Folate 16.60 ng/mL >3.99 Erythrocyte Sed Rate 9 mm/Hr 0-14 Iron & Iron Binding Capacity 08/16/2013 [facility] Iron 131 g/dL 50-212 [phone] Unsaturated Iron Binding 181 g/dL Total Iron Binding Capacity 312 g/dL 250-450 % Iron Saturation 42 % 15-55 Comp Metabolic Panel 08/16/2013 [facility] Sodium 137 mmol/L 133- 145 [phone] Potassium 4.3 mmol/L 3.7-5.6 Chloride 106 mmol/L [...] Egfr Non- 85.3 >60 Egfr 109.6 >60 21 Laboratory test 08/16/2013 [facility] TSH (Thyroid 1.27 IU/mL 0.34- 5.60 finding [phone] Stimulating Horm) CBC Auto Diff 08/16/2013 [facility] White Blood Count 8.8 10^3/uL 4.8-10.8 [phone] Red Blood Count 4.54 10^6/uL 4.0-5.4 Hemoglobin [...] Bilirubin - Ua Ketones - Ua Specific Golf 1.020 Ua Blood - Ua PH 6.0 Ua Protein - Ua Urobilinogen - Ua Nitrite - Ua Leukocytes - 1 Gl Accountant: [id number] 2 void, clear, yellow 3 [id number] 4 SEE RESULT BELOW Name: SULEMA MATUTE : [address]: Tarsha Wynn MD Acct: [id number] Unit: [id number] AGE: 46 Location: [facility] Re02/16/17 SEX: F Status: DEP ER SPEC: [id number] NAIMA: 02/16/17-[address]: Arlen SMART REQ: [id number] RECD: 02/17/17 STATUS: JJ FIERRO DR: Yamil Stewart DO Tarsha Ogden MD _ SOURCE: URINE SPDESC: ORDERED: Urine Culture COMMENTS: [id number] Procedure Result Reported Site Urine Culture Final 02/18/17- 0852 ML No Growth (<1,000 CFU/mL) * ML - MAIN LAB ([facility]) . END OF REPORT * ML=Testing performed at Main Lab DEPARTMENT OF PATHOLOGY, [address] [place] [address] Zach Fernando M.D. Director [facility] # [id number] 5 Gl Accountant: [id number] 6 SEE RESULT BELOW Name: SULEMA MATUTE : [address]: Philly CORREA Acct: [id number] Unit: [id number] AGE: 46 Location: [facility] Re11/04/16 SEX: F Status: REG REF SPEC: [id number] NAIMA: 11/04/16-[address]: Philly CORREA REQ: [id number] RECD: 11/04/16 STATUS: COMP _ SOURCE: THROAT SPDESC: ORDERED: Throat Culture COMMENTS: Culture and Sensitivities Procedure Result Reported Site Throat Culture Final 11/06/16- 1033 ML Organism 1 NORMAL SAMIRA Quantity 2+ Throat cultures are clinically indicated to detect the presence of group A strep, arcanobacterium and yeast. In certain cases, predominating organisms will be reported. * ML - MAIN LAB ([facility]) . END OF REPORT * ML=Testing performed at Main Lab DEPARTMENT OF PATHOLOGY, [address] [place] [address] Zach Fernando M.D. Director [facility] # [id number] 7 Because ethnic data is not always [...] 5 Kidney failure <15 (or dialysis) 8 Because ethnic data is not always readily [...] 15-29 5 Kidney failure <15 (or dialysis) 9 SEE RESULT BELOW Name: SULEMA MATUTE : [address]: Yamil Stewart DO Acct: [id number] Unit: [id number] AGE: 44 Location: [facility] Re06/10/15 SEX: F Status: REG REF SPEC: [id number] NAIMA: 06/10/15-[address] [facility] [address]: Yamil Stewart DO REQ: [id number] RECD: 06/10/151138 STATUS: COMP _ SOURCE: URINE SPDESC: ORDERED: Urine Culture Procedure Result Reported Site Urine Culture Final 06/11/15- 1220 ML No Growth (<1,000 CFU/mL) * ML - MAIN LAB ([facility]) . END OF REPORT * ML=Testing performed at Main Lab DEPARTMENT OF PATHOLOGY, [address] [place] [address] Zach Fernando M.D. Director [facility] # [id number] 10 void, clear, dark yellow 11 Normal Range 180 to 914 Indeterminate Range 145 to 180 Deficient Range <145 12 Because ethnic data is not always readily [...] 15-29 5 Kidney failure <15 (or dialysis) 13 no fracture. minimal degenerative changes. decreased lordosis. 14 void, clear, dark yellow 15 Nasopharyngeal swab 16 REFERENCE VALUE Not Applicable 17 REFERENCE VALUE Not Applicable ADDITIONAL INFORMATION Laboratory developed test. Test Performed by: [facility] - [address] [address] Casting Carrier: Jarrell Haney M.D. 18 RUN DATE: 01/01/14 [facility] LAB LIVE PAGE 1 RUN TIME: [address] [place] [address] Specimen Inquiry Name: SULEMA MATUTE : [address]: Yamil Stewart DO Acct: [id number] Unit: [id number] AGE: 43 Location: [facility] Re12/31/13 SEX: F Status: REG REF SPEC: [id number] NAIMA: 12/31/13-[address]: Yamil Stewart DO REQ: [id number] RECD: 12/31/13 STATUS: COMP _ SOURCE: URINE SPDC: ORDERED: GC/Chlam RNA QUERIES: Medent Number [id number] Procedure Result Verified Site Chlamydia Trachomatis RNA [...] result may have adverse psychosocial impact, the [facility] recommends retesting by a method using an [...] performed at Main Lab DEPARTMENT OF PATHOLOGY, [facility] [employer] [place], [place] [address] Zach Fernando M.D. Director [facility] # [id number] RUN DATE: 01/01/14 [facility] LAB LIVE PAGE 2 RUN TIME: 153 [facility] [place], [place] [address] Specimen Inquiry Patient: SULEMA MATUTE [id number] (Continued) Specimen: [id number] Collected: 12/31/13 Received: 12/31/13 (Continued) Procedure Result Verified Site GC (N. gonorrhoeae) RNA Final (continued) 01/01/14- 1531 Performance characteristics for detecting C. trachomatis and N. gonorrhoeae are derived from high prevalence populations. Positive results in low prevalence populations should be interpreted carefully with the understanding that the likelihood of a false positive may be higher than a true positive. END OF REPORT * ML=Testing performed at Main Lab DEPARTMENT OF PATHOLOGY, [address] [place] [address] Zach Fernando M.D. Director [facility] # [id number] 19 -- REFERENCE VALUE -- 25-HYDROXY D TOTAL (D2+D3) Optimum levels in the healthy population are 20-50, patients with bone disease may benefit from higher levels within this range. Test Performed by: [address] [address] Casting Carrier: Nikolay Wells III, M.D. 20 Normal Range 180 to 914 Indeterminate Range 145 to 180 Deficient Range <145 21 Because ethnic data is not always readily [...] dialysis) Procedures Date Code Description Status 05/24/2018 10586996 Mammogram Completed 03/21/2017 04203P Visual Acuity Screening Test - for Dot exams Completed 03/25/2015 75816 C-Spine, Complete, Incl Obl, FL+ Completed 03/13/2015 18421 Visual Acuity Screening Test Completed 03/12/2014 20837 Visual Acuity Screening Test Completed 03/26/2013 79757 Visual Acuity Screening Test Completed Encounters Type Date Location Provider Dx Diagnosis Office Visit 07/03/2018 Main Office Yamil Stewart, F33.9 Major depressive 2:45p D.O. 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 disorder, recurrent, unspecified F41.1 Generalized anxiety disorder G43.109 Migraine with aura, not intractable, w/o status migrainosus I10 Essential (primary) hypertension G47.00 Insomnia, unspecified Z79.899 Other detention (current) drug therapy Office Visit 07/04/2017 4:00p [...] unspecified I10 Essential (primary) hypertension Z79.899 Other detention (current) drug therapy Office Visit 11/04/2016 1:35p Main Office Philly Kolb, J02.0 Streptococcal PA pharyngitis Office Visit 10/29/2016 9:20a Main Office Lisseth Camp J02.0 Streptococcal P.A. pharyngitis F41.1 Generalized anxiety disorder Z23 Encounter for immunization Z41.8 Encntr for oth proc for purpose oth than [facility] N76.0 Acute vaginitis Office Visit 10/14/2016 11:00a Main Office Lisseth Camp J02.0 Streptococcal P.A. pharyngitis N76.0 Acute vaginitis Z23 Encounter for immunization K64.0 First degree hemorrhoids Z41.8 Encntr for oth proc for purpose oth than [facility] J02.9 Acute pharyngitis, unspecified Office Visit 08/31/2016 [...] unspecified Office Visit 08/26/2015 8:55a Main Office Terry Yamil, F33.9 Major depressive D.O. disorder, recurrent, unspecified F41.1 Generalized anxiety disorder T75.3xxD Motion sickness, subsequent encounter G47.00 Insomnia, unspecified Z23 Encounter for immunization Office Visit 07/31/2015 8:45a Main Office Yamil Stewart, F33.9 Major [...] Visit 02/23/2014 10:30a Main Office Yamil Stewart D.OAvel 786.2 Cough 625.6 Stress Incontinence Female Office Visit 12/31/2013 1:30p Main Office Yamil Stewart, 296.30 Depressive D.O. Disorder Major Recurrent Unspec 300.02 Anxiety Disorder Generalized 401.9 Hypertension Unspec 595.0 Cystitis Acute Office Visit 12/22/2013 10:45a Main Office Luis Pimentel 296.30 Depressive Ceasar Daley Disorder Major [...] Unspec Office Visit 04/23/2013 2:30p Main Office Sopchak, Yamil, 296.30 Depressive D.O. Disorder Major Recurrent Unspec [...] Yamil Stewart, 300.02 Anxiety Disorder D.O. 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
--- NOTE | 2018-08-10 19:38 | UC ---
Respiratory Complaint HPI - HPI Summary HPI Summary: 47 yo female presents with cough. I saw the pt about a month ago for a similar complaint and dx'd her with a viral illness as her exam and vitals were normal. She was seen two days later where she remained afebrile and 100% O2. Her CXR was normal at that time. She was treated for potential atypical pneumonia with biaxin and reports that she had complete resolution of her symptoms. Over the last 3 days she has had a persistent dry cough and feels short of breath at times. She has an albuterol inhaler that she used once and reports little improvement. Denies fever, chills, sore throat, chest pain, n/v. - History of Current Complaint Stated Complaint: COUGH Time Seen by Provider: 08/10/18 19:33 Hx Obtained From: Patient Hx Last Menstrual Period: unknown Severity Initially: Mild Severity Currently: Mild Pain Intensity: 2 Pain Scale Used: 0-10 Numeric Character: Cough: Nonproductive - Allergies/Home Medications Allergies/Adverse Reactions: Allergies Allergy/AdvReac Type Severity Reaction Status Date / Time codeine Allergy GI Upset Verified 07/08/18 17:32 Home Medications: Home Medications Acetaminophen [Tylenol Extra Strength] 500 mg PO Q8H PRN 08/10/18 [History Confirmed 08/10/18] PMH/Surg Hx/FS Hx/Imm Hx Respiratory History: Asthma Neurological History: Seizures, Migraine Psychological History: Anxiety, Depression - Surgical History Surgical History: Yes Surgery Procedure, Year, and Place: ANKLE SURGERY- A TEENAGER. TUBAL LIGATION- 5 YEARS AGO- [facility] – [place]. D/C DR. SAGASTUME 10/19 - Family History Known Family History: Positive: Hypertension Negative: Cardiac Disease, Respiratory Disease - Social History Lives: With Family Alcohol Use: Rare Substance Use Type: Prescribed Smoking Status (MU): Never Smoked Tobacco Review of Systems All Other Systems Reviewed And Are Negative: Yes Constitutional: Positive: Negative Skin: Positive: Negative Eyes: Positive: Negative ENT: Positive: Negative Respiratory: Positive: Shortness Of Breath, Cough Cardiovascular: Positive: Negative Gastrointestinal: Positive: Negative Musculoskeletal: Positive: Negative Neurological: Positive: Negative Psychological: Positive: Negative Physical Exam - Summary Physical Exam Summary: GENERAL: NAD. WDWN. Coughing throughout exam, but cough stops during conversation. SKIN: No rashes, sores, lesions, or open wounds. HEENT: Head: AT/NC Eyes: EOM intact. Conjunctiva clear without inflammation or discharge. Ears: Hearing grossly normal. TMs intact, no bulging, erythema, or edema. Nose: Nasal mucosa pink and moist. NTTP maxillary and frontal sinus. Throat: Posterior oropharynx without exudates, erythema, or tonsillar enlargement. Uvula midline. NECK: Supple. Nontender. No lymphadenopathy. CHEST: RLL coarse breath sounds. No accessory muscle use. Breathing comfortably and in no distress. CV: RRR. Without m/r/g. Pulses intact. Cap refill <2seconds NEURO: Alert. PSYCH: Age appropriate behavior. Triage Information Reviewed: Yes Vital Signs: Vital Signs: Temp Pulse Resp BP Pulse Ox 99.7 F 97 18 146/100 97 08/10/18 19:42 08/10/18 19:42 08/10/18 19:42 08/10/18 19:50 08/10/18 19:42 Vital Signs Reviewed: Yes Respiratory Course/Dx - Course Course Of Treatment: CXR: No radiologist reading after 1800, therefore wet read by myself is negative for PNA. Duoneb: Improvement s/p and less coughing. RLL previous coarse breath sounds improved s/p neb. Given that she had good improvement with biaxin previously with similar symptoms , will treat her with zpak today and encourage her to use her albuterol inhaler as directed. Suspect bronchitis - Differential Dx/Diagnosis Provider Diagnosis: Bronchitis Discharge - Sign-Out/Discharge Documenting (check all that apply): Patient Departure All imaging exams completed and their final reports reviewed: No - Discharge Plan Condition: Stable Disposition: HOME Prescriptions: Azithromycin TAB* [Zithromax TAB (Z-LENA) 250 mg #6 tabs] 2 tab PO .TODAY, THEN 1 DAILY #1 lena guaiFENesin ER TAB [Mucinex*] 600 mg PO BID #20 tab.er Patient Education Materials: Acute Cough (ED) Referrals: Yamil Stewart DO [Primary Care Provider] - 08/14/18 Additional Instructions: If you develop a fever, shortness of breath, chest pain, new or worsening symptoms - please call your PCP or go to the ED immediately. Your blood pressure was high at today's visit. I recommend you restart your blood pressure medication as previously prescribed. Your Chest X-Ray did not show any pneumonia today, but given your exam today - you are being treated with antibiotics at this time. Please schedule a follow up appointment with your PCP for early next week for a recheck of your cough. - Billing Disposition and Condition Condition: STABLE Disposition: Home
[2018-08-10 19:50] VITALS: BP 146/100
[2018-08-10] MEDS ORDERED: Albuterol/Ipratropium NEB.SOL* Albuterol 2.5 MG/Ipratropium 0.5 MG 3 ML INH ONE (19:57)
[2018-08-10] MEDS ORDERED: Azithromycin TAB* 250 MG PO ONE (20:54)
--- NOTE | 2018-08-11 10:10 | UC ---
- Progress Note Progress Note: CXR: IMPRESSION: NO EVIDENCE FOR ACTIVE CARDIOPULMONARY DISEASE. No change in plan of care Course/Dx - Diagnoses Provider Diagnoses: Bronchitis Discharge - Sign-Out/Discharge Documenting (check all that apply): Post-Discharge Follow Up All imaging exams completed and their final reports reviewed: Yes - Discharge Plan Condition: Stable Disposition: HOME Prescriptions: Azithromycin TAB* [Zithromax TAB (Z-LENA) 250 mg #6 tabs] 2 tab PO .TODAY, THEN 1 DAILY #1 lena guaiFENesin ER TAB [Mucinex*] 600 mg PO BID #20 tab.er Patient Education Materials: Acute Cough (ED) Referrals: Yamil Stewart DO [Primary Care Provider] - 08/14/18 Additional Instructions: If you develop a fever, shortness of breath, chest pain, new or worsening symptoms - please call your PCP or go to the ED immediately. Your blood pressure was high at today's visit. I recommend you restart your blood pressure medication as previously prescribed. Your Chest X-Ray did not show any pneumonia today, but given your exam today - you are being treated with antibiotics at this time. Please schedule a follow up appointment with your PCP for early next week for a recheck of your cough. - Billing Disposition and Condition Condition: STABLE Disposition: Home
== END 2018-08-10 21:03 | disposition home or self-care (01) ==
LOC: UCEAST 19:27
DX: J40 Bronchitis, not specified as acute or chronic (principal); F41.9 Anxiety disorder, unspecified; F32.9 Major depressive disorder, single episode, unspecified; Z88.5 Allergy status to narcotic agent
CPT/HCPCS: 71046; 99212; A9270-GY; G0463

== ENCOUNTER 2019-03-31 19:13 | Emergency (ER) | payer OTHER ==
[2019-03-31 19:34] VITALS: BP 148/92
[2019-03-31] MEDS ORDERED: Azithromycin TAB* 250 MG PO ONE (19:47)
[2019-03-31] MEDS ORDERED: Albuterol/Ipratropium NEB.SOL* Albuterol 2.5 MG/Ipratropium 0.5 MG 3 ML INH ONE (19:47)
--- NOTE | 2019-03-31 19:48 | UC ---
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 and if it is not treated with albuterol and a/b she will get PNA- - History of Current Complaint Chief Complaint: UCRespiratory Stated Complaint: COUGH Time Seen by Provider: 03/31/19 19:41 Hx Obtained From: Patient Hx Last Menstrual Period: unknown ?: No Onset/Duration: Sudden Onset, Lasting Days - 2 Timing: Constant Pain Intensity: 0 Character: Cough: Nonproductive Aggravating Factors: Deep Breaths, Recumbent Position Alleviating Factors: Nothing Associated Signs And Symptoms: Positive: URI - Allergies/Home Medications Allergies/Adverse Reactions: Allergies Allergy/AdvReac Type Severity Reaction Status Date / Time codeine Allergy GI Upset Verified 03/31/19 19:34 Home Medications: Home Medications Anxiety 1 tab PO DAILY 03/31/19 [History Confirmed 03/31/19] PMH/Surg Hx/FS Hx/Imm Hx Previously Healthy: No Cardiovascular History: Hypertension Psychological History: Anxiety - Surgical History Surgical History: Yes Surgery Procedure, Year, and Place: ANKLE SURGERY- A TEENAGER. TUBAL LIGATION- 5 YEARS AGO- [facility] – [place]. D/C DR. SAGASTUME 10/19 - Family History Known Family History: Positive: Hypertension Negative: Cardiac Disease, Respiratory Disease - Social History Occupation: Employed Full-time Lives: With Family Alcohol Use: Rare Substance Use Type: None Smoking Status (MU): Never Smoked Tobacco Review of Systems All Other Systems Reviewed And Are Negative: Yes Constitutional: Positive: Negative Skin: Positive: Negative Eyes: Positive: Negative ENT: Positive: Negative Respiratory: Positive: Shortness Of Breath, Cough Cardiovascular: Positive: Negative Gastrointestinal: Positive: Negative Genitourinary: Positive: Negative Motor: Positive: Negative Neurovascular: Positive: Negative Musculoskeletal: Positive: Negative Neurological: Positive: Negative Psychological: Positive: Negative Is Patient Immunocompromised?: No Physical Exam Triage Information Reviewed: Yes Appearance: No Pain Distress, Well-Nourished, Ill-Appearing - mild Vital Signs: Initial Vital Signs Temp 98.2 F 03/31/19 19:29 Pulse 76 03/31/19 19:29 Resp 20 03/31/19 19:29 BP 148/92 01/25/20 19:29 Pulse Ox 99 03/31/19 19:29 Vital Signs Reviewed: Yes Eye Exam: Normal Eyes: Positive: Conjunctiva Clear ENT Exam: Normal ENT: Positive: Normal ENT inspection, Hearing grossly normal, Pharynx normal, TMs normal. Negative: Nasal congestion, Tonsillar swelling, Tonsillar exudate, Trismus, Muffled voice, Hoarse voice, Dental tenderness, Sinus tenderness Dental Exam: Normal Neck exam: Normal Neck: Positive: Supple, Nontender, No Lymphadenopathy Respiratory Exam: Normal Respiratory: Positive: Chest non-tender, Lungs clear, Normal breath sounds, No respiratory distress, No accessory muscle use, Other: - continual bronchospastic cough Cardiovascular Exam: Normal Cardiovascular: Positive: RRR, No Murmur, Pulses Normal, Brisk Capillary Refill Musculoskeletal Exam: Normal Musculoskeletal: Positive: Strength Intact, ROM Intact, No Edema Neurological Exam: Normal Neurological: Positive: Alert, Muscle Tone Normal Psychological Exam: Normal Skin Exam: Normal Re-Evaluation - Re-Evaluation Second Eval Change: Improved - relief of cough with neb Respiratory Course/Dx - Course Course Of Treatment: albuterol MRI and aerochamber, Zithromax, increase fluids, otc medications for symptom relief - Differential Dx/Diagnosis Provider Diagnosis: Bronchitis, acute, with bronchospasm Discharge ED - Sign-Out/Discharge Documenting (check all that apply): Patient Departure All imaging exams completed and their final reports reviewed: No Studies - Discharge Plan Condition: Stable Disposition: HOME Prescriptions: Azithromycin TAB* [Zithromax TAB (Z-LENA) 250 mg #6 tabs] 250 mg PO DAILY #4 tab Patient Education Materials: Acute Bronchitis (ED), Bronchospasm (ED), How to Use a Metered-Dose Inhaler and a Spacer (ED) Referrals: Keegan Julio MD [Primary Care Provider] - 2 Weeks - Billing Disposition and Condition Condition: STABLE Disposition: Home
[2019-03-31] MEDS ORDERED: Albuterol HFA INHALER* 8 gm MDI INH ONE (20:19)
== END 2019-03-31 20:38 | disposition home or self-care (01) ==
LOC: UCEAST 19:13
DX: J20.9 Acute bronchitis, unspecified (principal); F41.9 Anxiety disorder, unspecified; I10 Essential (primary) hypertension; Z79.899 Other long term (current) drug therapy; Z88.5 Allergy status to narcotic agent; Z82.49 Family history of ischemic heart disease and other diseases of the circulatory system
CPT/HCPCS: 99213; A9270-GY; G0463